=== PATIENT | male | born 1940 | race Caucasian/White ===

== ENCOUNTER 2016-12-23 04:16 | Inpatient (IN) | payer OTHER ==
[~2016-12-23] VITALS: Ht 172.7 cm; Wt 58.0 kg
[2016-12-23] VITALS (21 sets, daily range): BP systolic 80–122; BP diastolic 39–65
[~2016-12-23 04:16] MED LIST: ACID REDUCER M150 MG PO; FLAX SEED OIL PO; IRON325 MG PO; SIMVASTATIN20 MG PO; VICODIN EQUIVAL1 TAB PO; VICODIN PO; VITAMIN A; VITAMIN B12; [UNRECOGNIZED DRUG - OTHER] PO
--- NOTE | 2016-12-23 05:48 | ED ORDER SUMMARY ---
..... Patient: SHORTY MIRANDA OrderSheet [facility] VisitID: [id number] [address] [place] [address] 76y, M Registration Date/Time: 12/23/2016 ORDER SHEET Weight: 74.8 kg (estimated) Allergies: No Known Drug Allergy GENERAL ORDERS: Chest 1V Urgent (04:12/23/2016 Telly Mera) (Ack 4:25 SRedmond) (4:34 RFay) Oxygen (to maintain sats > 92%) (per Simple Mask) (04:12/23/2016 Telly Mera) (Ack 4:25 SRedmond) (4:30 TBowen R.N.) Blood Culture (Yes) (not sure) Urgent (04:12/23/2016 Telly Mera) (Ack 4:25 SRedmond) (4:35 TBowen R.N.) CBC w Diff Urgent (04:12/23/2016 Telly Mera) (Ack 4:25 SRedmond) (4:35 TBowen R.N.) CMP Urgent (04:12/23/2016 Telly Mera) (Ack 4:25 SRedmond) (4:35 TBowen R.N.) UA-Culture if indicated Urgent (04:12/23/2016 Telly Mera) (Ack 4:25 SRedmond) (6:34 TBowen R.N.) PT with INR Urgent (04:12/23/2016 Telly Mera) (Ack 4:25 SRedmond) (5:49 AMcQuoid ER Tech1) PTT Urgent (04:12/23/2016 Telly Mera) (Ack 4:25 SRedmond) (5:49 AMcQuoid ER Tech1) Troponin-I Urgent (04:12/23/2016 Telly Mera) (Ack 4:25 SRedmond) (4:35 TBowen R.N.) Lactate, Serum Urgent (04:12/23/2016 Telly Mera) (Ack 4:25 SRedmond) (4:35 TBowen R.N.) Pulse oximeter (04:23 12/23/2016 Telly Mera) (Ack 4:25 SRedmond) (4:29 TBowestefany R.N.) Luevano Catheter (06:35 12/23/2016 TBabrahan R.N. verbal order read back to Telly Mera) (6:35 TBowestefany R.N.) Verbal order read back and verified Lactate, Serum Urgent (08:02 12/23/2016 Telly Mera) (8:38 Derrick R.N.) BNP Urgent (08:17 12/23/2016 Telly Mera) (8:38 Derrick R.N.) MEDICATION ORDERS: IV FLUIDS: IV NS : initial bolus 500 mL (1000 mL/hr), then none - for X1 (NOW) (04:22 12/23/2016 Telly Mera) (4:31 TBowestefany R.N.) Vancomycin IV 1 gm/200mL (NOW) (04:27 12/23/2016 Telly Mera) (4:36 TBowen R.N.) Levaquin IV 750 mg/150 mL (NOW) (04:28 12/23/2016 Telly Mera) (4:37 TBowestefany R.N.) Zosyn IV 4.5 gm/100mL (NOW) (04:28 12/23/2016 Telly Mera) (5:33 TBowestefany R.N.) Ativan IV 1 mg (NOW) (05:05 12/23/2016 Og R.NJesus verbal order read back to Telly Mera) (5:11 TBowen R.N.) Verbal order read back and verified IV NS : initial bolus 1000 mL (1000 mL/hr), then none - for X1 (NOW) (05:43 12/23/2016 Telly Mera) (6:05 TBowestefany R.N.) IV NS : initial bolus 500 mL (1000 mL/hr), then none - for X1 (NOW) (08:03 12/23/2016 Telly Mera) (9:23 Derrick R.N.) ORDER SHEET NOTES: [Electronically signed by Martha Wiley R.N. (09:26 12/23/2016)] [Electronically signed by Rahat Austin Dr. (:12/25/2016)] [Electronically locked/signed by Martha Wiley R.N. (:12/23/2016)]
--- NOTE | 2016-12-23 05:48 | ED ORDER SUMMARY ---
..... Patient: SHORTY MIRANDA OrderSheet [facility] VisitID: [id number] [address] [place] [address] 76y, M Registration Date/Time: 12/23/2016 ORDER SHEET Weight: 74.8 kg (estimated) Allergies: No Known Drug Allergy GENERAL ORDERS: Chest 1V Urgent (04:12/23/2016 Telly Mera) (Ack 4:25 SRedmond) (4:34 RFay) Oxygen (to maintain sats > 92%) (per Simple Mask) (04:12/23/2016 Telly Mera) (Ack 4:25 SRedmond) (4:30 TBowen R.N.) Blood Culture (Yes) (not sure) Urgent (04:12/23/2016 Telly Mera) (Ack 4:25 SRedmond) (4:35 TBowen R.N.) CBC w Diff Urgent (04:12/23/2016 Telly Mera) (Ack 4:25 SRedmond) (4:35 TBowen R.N.) CMP Urgent (04:12/23/2016 Telly Mera) (Ack 4:25 SRedmond) (4:35 TBowen R.N.) UA-Culture if indicated Urgent (04:12/23/2016 Telly Mera) (Ack 4:25 SRedmond) (6:34 TBowen R.N.) PT with INR Urgent (04:12/23/2016 Telly Mera) (Ack 4:25 SRedmond) (5:49 AMcQuoid ER Tech1) PTT Urgent (04:12/23/2016 Telly Mera) (Ack 4:25 SRedmond) (5:49 AMcQuoid ER Tech1) Troponin-I Urgent (04:12/23/2016 Telly Mera) (Ack 4:25 SRedmond) (4:35 TBowen R.N.) Lactate, Serum Urgent (04:12/23/2016 Telly Mera) (Ack 4:25 SRedmond) (4:35 TBowen R.N.) Pulse oximeter (04:23 12/23/2016 Telly Mera) (Ack 4:25 SRedmond) (4:29 TBowestefany R.N.) Luevano Catheter (06:35 12/23/2016 TBabrahan R.N. verbal order read back to Telly Mera) (6:35 TBowestefany R.N.) Verbal order read back and verified Lactate, Serum Urgent (08:02 12/23/2016 Telly Mera) (8:38 Derrick R.N.) BNP Urgent (08:17 12/23/2016 Telly Mera) (8:38 Derrick R.N.) MEDICATION ORDERS: IV FLUIDS: IV NS : initial bolus 500 mL (1000 mL/hr), then none - for X1 (NOW) (04:22 12/23/2016 Telly Mera) (4:31 TBowestefany R.N.) Vancomycin IV 1 gm/200mL (NOW) (04:27 12/23/2016 Telly Mera) (4:36 TBowen R.N.) Levaquin IV 750 mg/150 mL (NOW) (04:28 12/23/2016 Telly Mear) (4:37 TBowestefany R.N.) Zosyn IV 4.5 gm/100mL (NOW) (04:28 12/23/2016 Telly Mera) (5:33 TBowestefany R.N.) Ativan IV 1 mg (NOW) (05:05 12/23/2016 Og R.NJesus verbal order read back to Telly Mera) (5:11 TBowen R.N.) Verbal order read back and verified IV NS : initial bolus 1000 mL (1000 mL/hr), then none - for X1 (NOW) (05:43 12/23/2016 Telly Mera) (6:05 TBowestefany R.N.) IV NS : initial bolus 500 mL (1000 mL/hr), then none - for X1 (NOW) (08:03 12/23/2016 Telly Mera) (9:23 Derrick R.N.) ORDER SHEET NOTES: [Electronically signed by Martha Wiley R.N. (09:26 12/23/2016)] [Electronically signed by Rahat Austin Dr. (:12/25/2016)] [Electronically locked/signed by Martha Wiley R.N. (:12/23/2016)]
--- NOTE | 2016-12-23 05:48 | ED NURSING NOTES ---
Clinical Report - Nurses [place] [address] [place] [address] 12/23/2016 4:16 Patient: SHORTY MIRANDA TRIAGE Triage time 04:20. Acuity: LEVEL 2. Chief Complaint: SHORTNESS OF BREATH and DIFFICULTY BREATHING. --04:26 Alberto BarbosaN. 04:20 12/23/16. BP: 71/44. HR: 113. RR: 30. O2 saturation: 92%. Temp: 98.6 F. Pain level now: 010. --04:26 Abel Barbosa. Weight: 74.8 kg estimated. Height/Length: 70 inches Estimated. BMI: 23.7. --04:21 Abel Barbosa. Medications Unable to Obtain. --04:21 Abel Barbosa. Family to bring in medication list. --07:12 Martha Wiley R.N. Allergies No Known Drug Allergy. --07:12 Martha Wiley R.N. History Arrived by EMS. Historian: patient. This started today. Treatment PRIMARY HEALTH CARE NURSE: None. See EMS report. SOCIAL HX: No alcohol use or drug use. No infectious disease exposure. FALL RISK ASSESSMENT: Fall risk assessment completed. No fall risk identified. NUTRITIONAL RISK ASSESSMENT: The nutritional risk assessment revealed no deficiencies. FUNCTIONAL ASSESSMENT: Functional assessment: no impairments noted. LEARNING NEEDS ASSESSMENT: The learning needs assessment revealed no barriers. SKIN INTEGRITY ASSESSMENT: Skin integrity risk assessment completed. No skin integrity risk identified. --04:26 Delaney Barbosa PROBLEMS: Gastroesophageal Reflux Disease [Chronic]. --07:13 Martha Wiley R.N. Cardiovascular Risk Factors. Pneumonia. Anemia. Leukocytosis. Hypercholesterolemia. Blood Transfusions. --07:13 Martha Wiley R.N. Acute myeloid leukemia, disease. --07:14 Martha Wiley R.N. ADDITIONAL SURGERIES: Appendectomy. Eyes. Tonsillectomy. --07:15 Martha Wiley R.N. Interventions ID band on patient. To treatment room. --04:26 Delaney Barbosa PHYSICAL ASSESSMENT To room via stretcher. GENERAL / NEURO / PSYCH: Alert. Appears anxious and in distress. HEENT: Mucous membranes are pink. RESPIRATORY: Severe respiratory distress. The patient can speak a few words at a time. Chest nontender. CVS: Normal sinus rhythm noted. Capillary refill less than 2 seconds. GI / : Abdomen soft and nontender. Bowel sounds within normal limits. SKIN: Skin is warm and dry. Normal skin turgor. --04:27 Delaney Barbosa GENERAL / NEURO / PSYCH: Alert. Oriented X 4. He appears uncomfortable. HEENT: Mucous membranes are pink. RESPIRATORY: Moderate respiratory distress. The patient can speak a few words at a time. CVS: Capillary refill less than 2 seconds. SKIN: Skin is warm and dry. --07:17 Martha Wiley R.N. NURSING PROGRESS NOTES 04:03 12/23/2016 Site #1 started prior to arrival by EMS via IV in the left forearm with an 20g angiocath. --04:28 Delaney Barbosa 04:28 12/23/2016 Site #2 started via IV in the right forearm with an 18g angiocath. --04:28 Delaney Barbosa Oxygen administered. Monitoring of patient in place. Blood samples drawn. Portable chest x-ray. Patient gowned. Head of bed elevated. Two patient identifiers checked. Call light placed in reach. Side rails up x 2. Bed placed in lowest position. Brakes of bed on. --04:29 Delaney Babrosa 04:31 12/23/2016 Started bag #1 500 mL IV Fluids IV NS (Saline); at 1000 mL/hr over 30 minute(s) via site #2 via IV pump. Allergies verified and confirmed 5 rights. IV patency established. IV site checked: no pain, redness, or swelling. IV flushed thoroughly pre- and post-medication administration. --04:31 Delaney Barbosa 04:36 12/23/2016 Started 1 gm of Vancomycin IVPB in bag #1 250 mL; at 175 mL/hr over 1 hour(s) via site #2 via IV pump. Allergies verified and confirmed 5 rights. IV patency established. IV site checked: no pain, redness, or swelling. IV flushed thoroughly pre- and post-medication administration. --04:36 Delaney Barbosa 04:37 12/23/2016 Started 750 mg of Levaquin (Levofloxacin) IVPB in bag #1 150 mL; at 150 mL/hr over 1 hour(s) via site #1 via IV pump. Allergies verified and confirmed 5 rights. IV patency established. IV site checked: no pain, redness, or swelling. IV flushed thoroughly pre- and post-medication administration. --04:37 Alberto BarbosaNJesus 04:44 12/23/16. BP: 91/59. HR: 111. RR: 40. O2 saturation: 98% on non-rebreather. Temp: deferred. Pain level now: 0/10. --04:45 Alberto BarbosaNJesus 05:04 12/23/2016 IV Fluids IV NS Discontinued: completed. Total amount infused: 500 mL. IV patency established. IV site checked: no pain, redness, or swelling. IV flushed thoroughly. --05:04 Alberto BarbosaNJesus 05:11 12/23/2016 Ativan (LORazepam) IVP 1 mg given over 2 minute(s) via site #2. Allergies verified, confirmed 5 rights and sedative warning given to the patient. IV patency established. IV site checked: no pain, redness, or swelling. IV flushed thoroughly pre- and post-medication administration. IVP given by RN. --05:11 Delaney Barbosa 05:32 12/23/2016 Vancomycin IVPB Discontinued: bag #1 completed. Total amount infused: 200 mL. IV patency established. IV site checked: no pain, redness, or swelling. IV flushed thoroughly. --05:32 Alberto BarbosaNJesus 05:33 12/23/2016 Started 4.5 gm of Zosyn (Piperacillin Sod-Tazobactam So) IVPB in bag #1 100 mL; at 200 mL/hr over 30 minute(s) via site #2 via IV pump. Allergies verified and confirmed 5 rights. IV patency established. IV site checked: no pain, redness, or swelling. IV flushed thoroughly pre- and post-medication administration. --05:33 Alberto BarbosaN. 05:33 12/23/16. BP: 109/50. HR: 112. RR: 27. O2 saturation: 91% on non-rebreather at 15 liters/minute. O2 started via non-rebreather at 15 liters/minute. Temp: deferred. Pain level now: 0/10. --05:35 Abel Barbosa. Overall patient status is the same. --05:35 Alberto BarbosaN. 06:04 12/23/2016 Levaquin IVPB Discontinued: bag #1 completed. Total amount infused: 150 mL. IV patency established. IV site checked: no pain, redness, or swelling. IV flushed thoroughly. --06:04 Alberto BarbosaN. 06:05 12/23/2016 Started bag #1 1000 mL IV Fluids IV NS (Saline); at 1000 mL/hr over 1 hour(s) via site #2 via IV pump. Allergies verified and confirmed 5 rights. IV patency established. IV site checked: no pain, redness, or swelling. IV flushed thoroughly pre- and post-medication administration. --06:05 Abel Barbosa. 06:34 12/23/2016 Zosyn IVPB Discontinued: bag #1 completed. Total amount infused: 100 mL. IV patency established. IV site checked: no pain, redness, or swelling. IV flushed thoroughly. --06:34 Abel Barobsa. 06:35 12/23/2016 IV Fluids IV NS Discontinued: bag #2 completed. Total amount infused: 1000 mL. IV patency established. IV site checked: no pain, redness, or swelling. IV flushed thoroughly. --06:35 Perico Barbosa.Henrry. Patient gowned. 14 fr lawson catheter placed. Reason for indwelling catheter: critical need to monitor intake and output. During procedure hand hygiene observed and sterile equipment and aseptic technique used. Return of 100 mL jeramy-colored urine; attached to bedside drainage bag positioned below the bladder and secured with stabilization device. He tolerated procedure well. --06:36 Delaney Barbosa 06:36 12/23/16. BP: 148/96. HR: 114. RR: 32. O2 saturation: 89%. O2 started via non-rebreather. Temp: deferred. Pain level now: 0/10. --06:37 Delaney Barbosa ( cleaned skin tear to the left elbow and applied large band-aid to site, pt tolerated well). --06:47 Delaney Barbosa 07:12 12/23/16. BP: 103/48. HR: 110. RR: 44. O2 saturation: 90% on non-rebreather at 15 liters/minute. --07:17 Martha Wiley R.N. ( attempt to call report. CCU RN to call back.). --07:34 Martha Wiley R.N. 08:20 12/23/16. BP: 91/45. HR: 94. RR: 40. O2 saturation: 90%. Pain level now 0/10. --08:21 Martha Wiley R.N. Warming measures performed. ( changed pt. linens.). --08:22 Martha Wiley R.N. 08:35 12/23/2016 Started bag #2 1000 mL IV Fluids IV NS (Saline); at 1000 mL/hr over 30 minute(s) via site #1 via IV pump. Allergies verified and confirmed 5 rights. IV patency established. IV site checked: no pain, redness, or swelling. IV flushed thoroughly pre- and post-medication administration. --09:23 Martha Wiley R.N. DISPOSITION / DISCHARGE Report was given to a nurse via a phone call. Report included patient's care, treatment, medications, reviewed medication reconcilliation, and condition (including any recent changes or anticipated changes). All questions were answered. --08:47 Martha Wiley R.N. Disposition: observation in the Critical Care Unit. Transported via stretcher by nurse with monitor, defibrillator, IV and O2. Patient's personal items; items were placed in belongings bag, given to the patient and transported with the patient. --08:48 Martha Wiley R.N. 08:58 12/23/16. BP: 93/41. HR: 119 (tachycardic). RR: 50. O2 saturation: 97%. Temp: 98.2 F. Pain level now: 0. --09:00 Martha Wiley R.N. 09:10 12/23/2016 Site #[address] upon admission; patent, no pain and no signs of infiltration. Converted to saline lock and flushed with 10 mL saline; flushes easily. --09:25 Martha Wiley R.N. 09:10 12/23/2016 Site #[address] upon admission; patent; flushes easily. --09:25 Martha Wiley R.N. Departure time: 09:15. --09:25 Martha Wiley R.N. Locked/Released at 12/23/2016 9:26 by Martha Wiley R.N.
--- NOTE | 2016-12-23 05:48 | ED CLINICAL REPORT ---
Clinical Report - Physicians/Mid Levels [facility] [address] [place] [address] 12/23/2016 4:16 Patient: SHORTY MIRANDA Arrived- By ambulance. Historian- patient and EMS personnel. HISTORY OF PRESENT ILLNESS Chief Complaint: DYSPNEA. This started today and is still present and worsening. It was abrupt in onset and has been constant but is not gone now. The dyspnea is severe and is worsened by exertion and is improved by rest. The patient has had sputum production and a cough. No chest discomfort, calf pain or foot swelling. Similar symptoms previously: None. Recent medical care: The patient was seen recently by a health care provider (diagnosed with "pneumonia." on abx but does not know the name). REVIEW OF SYSTEMS No sore throat or nasal discharge. All systems otherwise negative, except as recorded above. PAST HISTORY See nurses notes. Risk factors for DVT/pulmonary embolism- cancer. SOCIAL HISTORY No alcohol use or drug use. No recent travel. Is a local resident. ADDITIONAL NOTES The nursing notes have been reviewed. PHYSICAL EXAM Vital Signs: 12/23/2016 04:20 BP: 71/44. HR: 113. RR: 30. O2 saturation: 92%. Temp: 98.6 F. Pain level now: 0/10. Blood pressure normal. Oxygen saturation normal. Appearance: Alert. Patient in moderate distress. Eyes: Pupils equal, round and reactive to light. Eyes normal inspection. ENT: Ears normal. Nose normal. Pharynx normal. Uvula midline. Neck: Normal inspection. No jugular venous distention. Neck supple. CVS: Normal heart rate and rhythm. Heart sounds normal. Pulses normal. Respiratory: No respiratory distress. Moderate respiratory distress with accessory muscle use, anxiety, diaphoresis, tachypnea and hyperventilation. Moderate bilateral rhonchi present in the bases. Breath sounds normal. No splinting, wheezes or stridor. Abdomen: Soft and nontender. No organomegaly. Back: Normal inspection. Skin: Skin warm and dry. Normal skin color. No rash. Normal skin turgor. Extremities: Extremities exhibit normal ROM. No lower extremity edema. Neuro: Oriented X 3. No motor deficit. No sensory deficit. LABS, X-RAYS, AND EKG EKG: Tachycardia (123). Normal P waves. Normal DORI. Normal QRS complex. RBBB. Normal axis. Normal ST and T waves, QT and QTc. sinus tach with RBBB. EKG unchanged when compared with prior EKG. The study has been interpreted contemporaneously by me. The study has been independently viewed by me. Artifact present. Chest X-ray: (bilateral patchy infiltrates). Views: PA. Technique: good. The X-rays were independently viewed by me and interpreted contemporaneously by me. A comparison with prior films reveals that the findings are new (10/08/2016). Laboratory Tests: CBC w Diff: (YRN: 12/23/2016 03:30) ( MsgRcvd 12/23/2016 05:52) Final results Test Result Flag Units (Reference) WHITE BLOOD COUNT 4.9 K/uL (4.5-11.5) CORRECTED WBC 4.6 K/uL RED BLOOD COUNT 2.99 L M/uL (4.50-5.90) HEMOGLOBIN 8.8 L gm/dL (13.5-17.5) HEMATOCRIT 27.1 L % (41.0-53.0) MEAN CELL VOLUME 91 fL (80-100) MEAN CORPUSCULAR HGB 29 pg (26-34) MEAN CORPUSCULAR HGB CONC 32 g/dL (31-37) RED CELL DISTRIBUTION WIDTH 18.0 H % (11.6-14.8) PLATELET COUNT 280 K/uL (150-400) POLY % 60 % (50-75) BAND % 20 H % (0-8) LYMPH 9 L % (25-40) MONO 11 % (3-14) EOSINOPHIL % 0 % (0-4) BASOPHIL % 0 % (0-2) METAMYELOCYTE % 0 % (0-1) MYELOCYTE 0 % (0-1) NUCLEATED RED BLOOD CELL 6 H (0-1) OTHER CELL TYPE 0 RBC MORPHOLOGY 2+ HYPOCHROMIA~~1+ MICROCYTOSIS~~2+ ANISOCYTOSIS PT with INR: (YRN: 12/23/2016 05:15) ( MsgRcvd 12/23/2016 05:38) Final results Test Result Flag Units (Reference) INR 1.4 H (0.8-1.2) Low Intensity Therapy: INR 1.5-2.0 PT range 18.5-23.1Mod.Intensity Therapy: INR 2.0-3.0 PT range 23.1-31.5High Intensity Therapy: INR 2.5-3.5 PT range 27.4-35.5High Intensity Therapy 2: INR 3.0-4.0 PT range 31.5-39.3 APTT 37 H SECONDS (24-34) Lactate, Serum: (YRN: 12/23/2016 03:30) ( [facility] [place] 12/23/2016 05:35) Final results Test Result Flag Units (Reference) LACTIC ACID 12.0 H mmol/L (0.4-2.0) CRITICAL RESULTS CALLEDCalled to 12/23/16 0534Were 2 patient identifiers used? YWas the result read back? N CMP: (YRN: 12/23/2016 04:30) ( [facility] [place] 12/23/2016 05:35) Final results Test Result Flag Units (Reference) GLUCOSE 136 H mg/dL (70-110) BUN 24 H mg/dL (7-18) CREATININE 1.8 H mg/dL (0.6-1.3) Estimated GFR 38.98 mL/min Estimated GFR- 47.24 mL/min Note: Persistent reduction over 3 months in eGFR<60 mL/min/1.73 m2 defines CKD. Patients with eGFR values>=60 mL/min/1.73 m2 may also have CKD if evidence ofpersistent proteinuria. Additional information may be foundat www.kidney.org. SODIUM 136 mmol/L (136-145) POTASSIUM 3.9 mmol/L (3.5-5.1) CHLORIDE 103 mmol/L (98-107) CARBON DIOXIDE 11 *L mmol/L (21-32) CRITICAL RESULTS CALLEDCalled to 12/23/16 0535Were 2 patient identifiers used? YWas the result read back? N CALCIUM 7.9 L mg/dL (8.5-10.1) TOTAL PROTEIN 6.0 L g/dL (6.4-8.2) ALBUMIN 1.7 L g/dL (3.3-5.0) BILIRUBIN, TOTAL 1.2 H mg/dL (0.0-1.0) ALKALINE PHOSPHATASE 293 H U/L (46-116) AST (SGOT) 52 H U/L (15-37) ALT (SGPT) 66 U/L (12-78) TROPONIN I 0.05 ng/mL (0.00-1.5) TROPONIN REFERENCE RANGE:<0.1 NEGATIVE0.1-1.5 INDETERMINANT>1.5 POSITIVE . Pulse Oximetry: 12/23/2016 08:20 O2 saturation: 90%. 12/23/2016 06:36 O2 saturation: 89%. (FIO2-15 liter/min simple mask). Interpretation: hypoxemia. PROGRESS AND PROCEDURES Course of Care: the patient is a pleasant 76 yo male with hx of what he describes as myeloid leukemia presenting for shortness of breath. It has been associated with a cough. Due to time course and similar problems with pneumonia, this is the most likely diagnosis. other considerations include electrolyte abnormalities, AMI, and pneumothorax. Work up ordered. Patient placed on mask for O2. Lungs with asymmetrical rhonchi with right being worse than left. No wheezing. Do not feel breathing treatment would help at this time. Patient noted to be no code but agreeable to IV abx and fluids. CXR shows patient to have bilateral consolidations that are changed from prior chest xray. Abx and blood cultures ordered. Lab studies still pending. Work up shows patient to have increased lactic acid and low bicarb. Likely due to metablic acidosis. Patient given additional fluids for the lactic acidosis. Patient is to be admitted. Work up also shows anemia without need for transfusion at this time unless it is less than 7 for the hemoglobin. Spoke with hospitalist who will accept the patient to tele. No further recs except add on labs which she states she will follow up on. Patient admitted. No other concerns at this time. Do not feel patient's condition is due to PE or AMI. Patient with clear signs of infection on labs and CXR. Trop also negative with unremarkable EKG. Critical care performed (60 minutes). Time is exclusive of separately billable procedures. Time includes: direct patient care, patient reassessment, interpretation of data (laboratory data and pulse oximetry) and medical consultation. Disposition: Admitted to Acute Care. with tele. CLINICAL IMPRESSION sepsis acute moderate pneumonia acute bilateral lactic acidosis respiratory distress. (Electronically signed by Rahat Austin Dr. 12/25/2016 9:25)
--- NOTE | 2016-12-23 10:52 | DIAGNOSTIC IMAGING REPORT ---
PROCEDURE: XR CHEST 1 VIEW INDICATION: SOB TECHNIQUE: Single view chest. 04:28 hours COMPARISON: 10/08/2016 FINDINGS: Normal cardiomediastinal contour. Indistinct central vessels secondary to extensive left perihilar and right upper lobe alveolar opacity. No definite pleural effusion. No pneumothorax. No acute fractures visible. IMPRESSION: 1. Fairly extensive bilateral right upper and left perihilar opacities suggestive of pneumonia. 2. Interval resolution of previous bilateral lower lobe pneumonia.
[2016-12-23] MEDS ORDERED: AMIODARONE HCL200 MG PO ×2 (12:05→12:06)
[2016-12-23] MEDS ORDERED: DIFLUCAN200 MG PO (12:08)
[2016-12-23] MEDS ORDERED: POTASSIUM CHLORIDE PO (12:13)
[2016-12-23] MEDS ORDERED: ALDACTONE25 MG PO (12:14)
[2016-12-23] MEDS ORDERED: PROAIR HFA IN (12:17)
[2016-12-23] MEDS ORDERED: MEGESTROL625 MG/5 M PO (12:18)
[2016-12-23] MEDS ORDERED: CRESTOR5 MG PO (12:19)
[2016-12-23] MEDS ORDERED: SPIRIVA18 MCG INH (12:20)
--- NOTE | 2016-12-23 18:27 | DIAGNOSTIC IMAGING REPORT ---
PROCEDURE: NM PULMONARY PERFUSION W/VENT INDICATION: Short of breath, pneumonia, history of smoking, left-sided chest pain TECHNIQUE: 43.5 mCi of technetium-99m DTPA was aerosolized and inhaled. 5.8 mCi technetium-99m MAA was injected intravenously. Ventilation and perfusion images of the lungs were obtained in eight orthogonal projections. COMPARISON: None. Chest x-ray Performed the same day FINDINGS: Ventilation images: Extensive clumping of radiotracer in the main bronchi and seen in the trachea. Heterogeneous distribution of radiotracer throughout the lungs with relative increased aeration at the lung bases Perfusion images: Mildly heterogeneous distribution of perfusion radiotracer throughout the lungs with preferential perfusion to the left lung base, compatible with the aeration pattern. No large perfusion defects are visible. Asymmetric elevation of the right hemidiaphragm corresponds to the radiograph finding. No mismatched defects of perfusion versus ventilation to suggest pulmonary embolus. IMPRESSION: 1. Low probability of pulmonary embolus. 2. Relative decreased aeration to the upper lobes and diffuse heterogeneous aeration throughout compatible with history of smoking and of COPD. 3. Discussed with Dr. Hahn.
[2016-12-24] VITALS (24 sets, daily range): BP systolic 91–117; BP diastolic 42–65
--- NOTE | 2016-12-24 01:08 | HISTORY AND PHYSICAL ---
ADMITTED: 12/23/2016 CHIEF COMPLAINT: 1. Weakness 2. Shortness of breath HISTORY OF PRESENT ILLNESS: This is a 76-year-old male with a very complex medical history over the last couple of months, including new diagnosis of acute myelogenous leukemia in the middle of September, who has been treated with 3 treatments of chemotherapy and said to be in remission as of bone marrow biopsy done 12/12/2016. The patient initially presented to [facility] on 10/08/2016 and was admitted and monitored overnight, at which point he was transferred to the [facility] and was a patient there from 2015 until 11/05 2016. During this time, the patient was treated for his leukemia, as well as for resistant pneumonia with extremely broad-spectrum antibiotics. He was discharged home and then readmitted to [facility] on 11/12/2016 for reinduction chemotherapy and then discharged 11/18/2016, but readmitted for worsening pneumonia on 11/21/2016 and diagnosed with recurrent pneumonia coagulase-negative staphylococcal bacteremia. Blood cultures were also positive for henok. He was discharged on 12/13/2016 and finished his antifungal and antibiotics on 12/17/2016. Over the last 2 days, so on 12/21/2016, the patient started having increasing weakness and shortness of breath, at which point he presented to [facility] after a fall from his weakness. He states that he has increased cough with sputum production. He does also complain that he has had chronic rhinorrhea over the last several years, and 24 hours before admission he also does have a headache. Upon admission, he was complaining of left-sided chest pain and tightness. MEDICAL/SURGICAL HISTORY: Past medical history: 1. Acute myelogenous leukemia. 2. Internal hemorrhoids. 3. Colon polyps. 4. Glaucoma. 5. Dyslipidemia. 6. Recent pancytopenia secondary to the treatment for acute myelogenous leukemia; however, this had resolved since treatment. Summary of medical care over the last 2 months: The patient was admitted on to 10/09/[address] [facility] and diagnosed with likely leukemia, sepsis, and severe pneumonia. The patient was then transferred to the [facility] 10/09/2016 and was an inpatient until 11/05/2016. At this time, the patient was diagnosed with acute myelogenous leukemia and received cytarabine secondary to concerns for pulmonary leukostasis. He then received dose-reduced G-CLAM, day 1 of which was 10/11/2016. The patient developed neutropenic fever on 10/18/2016. CT of the chest, abdomen, and pelvis was negative except for pneumonia. C. difficile and stool studies were negative. Urine culture and blood cultures were negative. The patient had a repeat bone marrow biopsy on 11/05/2016, of which I do not have the results. The patient was treated and discharged home with Augmentin and Cipro until neutropenia has resolved, and he was given prophylaxis with acyclovir and posaconazole. While inpatient, the patient's COPD and pneumonia were treated with Zosyn and a Z-Matthew. There were concerns for dysphagia, resulting in aspiration; however, this was not further evaluated at the [facility]. The patient had insomnia, which did seem to improve with melatonin and trazodone, and he had an HSV outbreak and it was treated with acyclovir. Studies during this period of time included a CT of the chest on 10/10/2016, which showed pneumonia and/or aspiration pneumonia in bilateral lower lobes and paraseptal emphysema. He had another repeat CT scan on 10/18 2016, which showed improving consolidation. He had a CT of his abdomen and pelvis on 10/21/2016 which showed right greater than left bibasilar opacities and ground-glass opacities, interlobar septal thickening, nonobstructing bilateral renal calculi. He had a repeat CT of his chest on 10/26/2016 showing ground-glass and consolidation in the right lower lobe and posterior aspect of the right middle lobe showing worsening pneumonia. The patient was then readmitted at [facility] on 11/12/2016 for reinduction mini G-CLAM and was an inpatient until 11/18/2016. The patient was then readmitted at [facility] on 11/21/2016 due to neutropenic fever and was not discharged until 12/13/2016. The patient, during this hospitalization received broad-spectrum antibiotics including meropenem and Zosyn, and was diagnosed with a fungal infection in his blood and treated with micafungin, and then discharged home on fluconazole. He also had a swallow evaluation with barium which was negative for laryngeal penetration or bronchial aspiration. This took place on 11/15/2016. He had a CT scan on his chest on 11/28 2016, which showed pneumonia. He also had an echocardiogram on 11/30/2016 which showed an ejection fraction of 50% and a large aortic aneurysm of 4 cm. It also showed trace hepatic fluid and small pleural effusions. The patient was diagnosed with depression and 3:1 flutter during this hospitalization and started on amiodarone. His amiodarone dose was initially 200 mg p.o. b.i.d., but it has since been decreased to 200 mg p.o. daily. He had a CT scan of his sinuses on 11/28/2016 which was negative. He had a repeat bone marrow biopsy on 12/12/2016, which showed regenerating marrow with no evidence of residual leukemia. The actual read stated "[id number] normocytic normochromic anemia, marked absolute lymphopenia and thrombocytopenia." Past surgical history: 1. Mohs surgery on his forehead for skin cancer. 2. Colonoscopy a couple years ago. 3. T&A. 4. Appendectomy. 5. ORIF on right femur and right tib-fib secondary to fractures. MEDICATIONS: 1. Amiodarone 200 mg p.o. daily. 2. Potassium chloride 20 mEq p.o. daily. 3. Spironolactone 25 mg p.o. daily. 4. Albuterol inhaler. 5. Megestrol 40 mg p.o. daily. 6. Rosuvastatin 5 mg p.o. daily. 7. Spiriva 18 mcg 1 puff inhaled daily. 8. Fluconazole 200 mg p.o. b.i.d., which ended 12/19/2016. ALLERGIES: 1. NO KNOWN DRUG ALLERGIES. SOCIAL HISTORY: The patient lives with his and his dog. He quit drinking alcohol in September 2016, at which time he was drinking 2-3 beers per week. He quit smoking on 09/24/2016 after smoking since 1956 at a rate of 1 pack per day. FAMILY HISTORY: Father with stroke. Mother with breast cancer. REVIEW OF SYSTEMS: A full 12-point review of systems was negative, except as per HPI, and the fact that he has frequent urination with urinary urgency and dysuria despite a normal UA. He also complains of years of diffuse muscle aches and recurrent epistaxis. PHYSICAL EXAMINATION: VITAL SIGNS: Blood pressure on admission was 80/42, pulse of 112, respiratory rate of 40, O2 saturation of 97% on 12 liters of oxygen by a nonrebreather, T- max of 37.2 degrees Celsius. GENERAL: This is a toxic-appearing, elderly male lying in bed, in moderate respiratory distress. HEENT: Head is atraumatic, normocephalic. Pupils are equal, round, and reactive to light with accommodation bilaterally. Extraocular muscles are intact bilaterally. NECK: Trachea is midline. There is no JVD. CARDIAC: S1, S2, regular rhythm, tachycardia. No S3, S4, gallops, or rubs. There is a 2/6 systolic murmur increased at the base. LUNGS: Fairly clear bilaterally with crackles in the bilateral lower bean and on the left side. ABDOMEN: Soft, nontender, nondistended without hepatosplenomegaly or masses. Bowel sounds are active. EXTREMITIES: There is no peripheral edema. LAB/IMAGING: Sodium is 136, potassium 3.9, chloride 103, bicarbonate 11, BUN of 24, creatinine of 1.8, glucose of 136, calcium of 7.4. Alkaline phosphatase of 293, albumin 1.7, total protein of 6.0, total bilirubin is 1.2. AST of 52, ALT of 66. Troponin is 0.05. Lactic acid of 12. INR of 1.4. UA is negative. White blood cell count of 4.9, hemoglobin of 8.8, hematocrit of 27.1, platelets of 280. Chest x-ray shows moderately severe bibasilar consolidations suggestive of pneumonia. EKG shows sinus rhythm at 123 beats per minute with a right bundle branch block and a QTc of 558. ABG shows a pH of 7.48, pCO2 of 19.2, and bicarbonate of 14.4. Blood cultures x2 are pending. BNP is 736. IMPRESSION: 1. This is a 76-year-old male with recent acute myelogenous leukemia, now in remission, and chronic pneumonia and bacteremia with a fungal infection of his blood, recently also with pancytopenia, presenting with complaints of weakness and shortness of breath secondary to sepsis from pneumonia and possibly ongoing bacteremia and a fungal infection in his blood. 2. I am also concerned the patient also has chest pain on admission and will be ruled out for acute coronary syndrome. 3. The patient also with acute on chronic respiratory alkalosis and, considering risk factors, is at high risk for possible deep venous thrombosis. PLAN: 1. Fluids, electrolytes, and nutrition: The patient will be n.p.o. pending respiratory improvement. 2. Cardiac: Rule out acute coronary syndrome. I have ordered serial troponins. I am also concerned about looming heart failure; however, the patient clinically is not having a congestive heart failure exacerbation currently. Will monitor closely, especially given need for intravenous fluids. The patient does have prolonged QTc, and we will avoid medications that may cause cardiac arrhythmias. The patient had 3:1 flutter recently and is on amiodarone. We will continue the amiodarone. 3. Respiratory: The patient has ongoing pneumonia despite prolonged intravenous antibiotics over the last 2 months. I started broad-spectrum antibiotics including vancomycin, Zosyn, and azithromycin and have discussed this route of care with Dr. Paredes from Infectious Disease at [facility]. The patient has acute on chronic respiratory alkalosis. Ventilation-perfusion scan was done and was suggestive of no pulmonary embolism. 4. Renal: The patient is in acute renal failure. I have started him on intravenous fluids for resuscitation. Will monitor closely. 5. Infectious Disease: Given the recent history of bacteremia and a fungal infection of blood, I am also concerned that the patient may have ongoing blood infections. I have added micafungin at the suggestion of Dr. Paredes. 6. Prophylaxis: The patient will be on gastrointestinal ulcer prophylaxis with famotidine and will be on deep venous thrombosis prophylaxis with heparin. 7. CODE STATUS: I HAD A LONG CONVERSATION WITH THE PATIENT AND HIS ABOUT THIS SITUATION. THEY SAID IN THE CASE OF A CODE, THEY WOULD NOT WANT ANYTHING FURTHER DONE; HOWEVER, IF HE IS HEADED TOWARDS RESPIRATORY DISTRESS OR FAILURE, THEY WOULD WANT TO TRY BIPAP AND CONSIDER INTUBATION IF INDICATED WITH THE CONDITION THAT THEY WOULD ONLY WANT TO BE ON A VENTILATOR FOR 24-48 HOURS.
[2016-12-25] VITALS (20 sets, daily range): BP systolic 97–124; BP diastolic 51–62
--- NOTE | 2016-12-25 09:26 | ED MED RECONCILIATION SUMMARY ---
Patient: SHORTY MIRANDA Medication Reconciliation Report [facility] VisitID: [id number] [address] [place] [address] 76y, M Registration Date/Time: 12/23/2016 Weight: 74.8 kg Height/Length: 70 in. BMI: 23.7 ALLERGIES: No Known Drug Allergy The patient's Home Medications are listed below: THE FOLLOWING MEDICATIONS NEED TO BE RECONCILED: Family to bring in medication list The source(s) of the original Home Medication information: Not obtained. The following Medications were given to the patient in the Emergency Department: IV NS IV Fluids bolus 0, then 1000 mL/hr, administered: 12/23/2016 4:31:00 AM Vancomycin [IVPB] IVPB bolus 0, then 1 gm 175 mL/hr, administered: 12/23/2016 4:36:00 AM Levaquin [IVPB] IVPB bolus 0, then 750 mg 150 mL/hr, administered: 12/23/2016 4:37:00 AM Ativan [IVP] IVP 1 mg, administered: 12/23/2016 5:11:00 AM Zosyn [IVPB] IVPB bolus 0, then 4.5 gm 200 mL/hr, administered: 12/23/2016 5:33:00 AM IV NS IV Fluids bolus 0, then 1000 mL/hr, administered: 12/23/2016 6:05:00 AM IV NS IV Fluids bolus 0, then 1000 mL/hr, administered: 12/23/2016 8:35:00 AM The following Medications were prescribed to the patient: None.
--- NOTE | 2016-12-25 09:26 | ED MAR SUMMARY ---
..... Medication Administration Record [facility] [address] [place] [address] Patient: SHORTY MIRANDA Visit ID: [id number] 76y, M Weight: 74.8 kg Height/Length: 70 in BMI: 23.7 ALLERGIES: No Known Drug Allergy Start 04:31 12/23/2016 Abel Barbosa., Stop 05:04 12/23/2016 Delaney Barbosa Medication Administered: IV NS (SALINE), Dose: IV Fluids over 30 minute(s), Rate: 1000 mL/hr, Dispensed: 500 mL bag, Site: #2 right forearm. Medication Ordered: IV NS : initial bolus 500 mL (1000 mL/hr), then none - for X1 (NOW). Start 04:36 12/23/2016 Abel Barbosa., Stop 05:32 12/23/2016 Delaney Barbosa Medication Administered: VANCOMYCIN [IVPB], Dose: 1 gm IVPB over 1 hour(s), Rate: 175 mL/hr, Dispensed: 250 mL bag, Site: #2 right forearm. Medication Ordered: Vancomycin IV 1 gm/200mL (NOW). Start 04:37 12/23/2016 Abel Barbosa., Stop 06:04 12/23/2016 Abel Barbosa. Medication Administered: LEVAQUIN [IVPB] (LEVOFLOXACIN), Dose: 750 mg IVPB over 1 hour(s), Rate: 150 mL/hr, Dispensed: 150 mL bag, Site: #1 left forearm. Medication Ordered: Levaquin IV 750 mg/150 mL (NOW). Given 05:11 12/23/2016 Delaney Barbosa Medication Administered: ATIVAN [IVP] (LORAZEPAM), Dose: 1 mg IVP over 2 minute(s), Site: #2 right forearm. Medication Ordered: Ativan IV 1 mg (NOW). Start 05:33 12/23/2016 Abel Barbosa., Stop 06:34 12/23/2016 Delaney Barbosa Medication Administered: ZOSYN [IVPB] (PIPERACILLIN SOD-TAZOBACTAM SO), Dose: 4.5 gm IVPB over 30 minute(s), Rate: 200 mL/hr, Dispensed: 100 mL bag, Site: #2 right forearm. Medication Ordered: Zosyn IV 4.5 gm/100mL (NOW). Start 06:05 12/23/2016 Chelsey R.N., Stop 06:35 12/23/2016 Chelsey RMary. Medication Administered: IV NS (SALINE), Dose: IV Fluids over 1 hour(s), Rate: 1000 mL/hr, Dispensed: 1000 mL bag, Site: #2 right forearm. Medication Ordered: IV NS : initial bolus 1000 mL (1000 mL/hr), then none - for X1 (NOW). Start 08:35 12/23/2016 Martha Wiley RJesusNJesus Medication Administered: IV NS (SALINE), Dose: IV Fluids over 30 minute(s), Rate: 1000 mL/hr, Dispensed: 1000 mL bag, Site: #1 left forearm. Medication Ordered: IV NS : initial bolus 500 mL (1000 mL/hr), then none - for X1 (NOW).
--- NOTE | 2016-12-25 09:26 | ED MED RECONCILIATION SUMMARY ---
Patient: SHORTY MIRANDA Medication Reconciliation Report [facility] VisitID: [id number] [address] [place] [address] 76y, M Registration Date/Time: 12/23/2016 Weight: 74.8 kg Height/Length: 70 in. BMI: 23.7 ALLERGIES: No Known Drug Allergy The patient's Home Medications are listed below: THE FOLLOWING MEDICATIONS NEED TO BE RECONCILED: Family to bring in medication list The source(s) of the original Home Medication information: Not obtained. The following Medications were given to the patient in the Emergency Department: IV NS IV Fluids bolus 0, then 1000 mL/hr, administered: 12/23/2016 4:31:00 AM Vancomycin [IVPB] IVPB bolus 0, then 1 gm 175 mL/hr, administered: 12/23/2016 4:36:00 AM Levaquin [IVPB] IVPB bolus 0, then 750 mg 150 mL/hr, administered: 12/23/2016 4:37:00 AM Ativan [IVP] IVP 1 mg, administered: 12/23/2016 5:11:00 AM Zosyn [IVPB] IVPB bolus 0, then 4.5 gm 200 mL/hr, administered: 12/23/2016 5:33:00 AM IV NS IV Fluids bolus 0, then 1000 mL/hr, administered: 12/23/2016 6:05:00 AM IV NS IV Fluids bolus 0, then 1000 mL/hr, administered: 12/23/2016 8:35:00 AM The following Medications were prescribed to the patient: None.
--- NOTE | 2016-12-25 09:26 | ED DISCHARGE INSTRUCTIONS ---
Patient: SHORTY MIRANDA General Instructions [facility] VisitID: [id number] [address] [place] [address] 76y, M Registration Date/Time: 12/23/2016 sepsis acute moderate pneumonia acute bilateral lactic acidosis respiratory distress. (Electronically signed by Rahat Austin Dr. 12/25/2016 9:25)
--- NOTE | 2016-12-25 09:26 | ED MAR SUMMARY ---
..... Medication Administration Record [facility] [address] [place] [address] Patient: SHORTY MIRANDA Visit ID: [id number] 76y, M Weight: 74.8 kg Height/Length: 70 in BMI: 23.7 ALLERGIES: No Known Drug Allergy Start 04:31 12/23/2016 Abel Barbosa., Stop 05:04 12/23/2016 Delaney Barbosa Medication Administered: IV NS (SALINE), Dose: IV Fluids over 30 minute(s), Rate: 1000 mL/hr, Dispensed: 500 mL bag, Site: #2 right forearm. Medication Ordered: IV NS : initial bolus 500 mL (1000 mL/hr), then none - for X1 (NOW). Start 04:36 12/23/2016 Abel Barbosa., Stop 05:32 12/23/2016 Delaney Barbosa Medication Administered: VANCOMYCIN [IVPB], Dose: 1 gm IVPB over 1 hour(s), Rate: 175 mL/hr, Dispensed: 250 mL bag, Site: #2 right forearm. Medication Ordered: Vancomycin IV 1 gm/200mL (NOW). Start 04:37 12/23/2016 Abel Barbosa., Stop 06:04 12/23/2016 Abel Barbosa. Medication Administered: LEVAQUIN [IVPB] (LEVOFLOXACIN), Dose: 750 mg IVPB over 1 hour(s), Rate: 150 mL/hr, Dispensed: 150 mL bag, Site: #1 left forearm. Medication Ordered: Levaquin IV 750 mg/150 mL (NOW). Given 05:11 12/23/2016 Delaney Barbosa Medication Administered: ATIVAN [IVP] (LORAZEPAM), Dose: 1 mg IVP over 2 minute(s), Site: #2 right forearm. Medication Ordered: Ativan IV 1 mg (NOW). Start 05:33 12/23/2016 Abel Barbosa., Stop 06:34 12/23/2016 Delaney Barbosa Medication Administered: ZOSYN [IVPB] (PIPERACILLIN SOD-TAZOBACTAM SO), Dose: 4.5 gm IVPB over 30 minute(s), Rate: 200 mL/hr, Dispensed: 100 mL bag, Site: #2 right forearm. Medication Ordered: Zosyn IV 4.5 gm/100mL (NOW). Start 06:05 12/23/2016 Chelsey R.N., Stop 06:35 12/23/2016 Chelsey RMary. Medication Administered: IV NS (SALINE), Dose: IV Fluids over 1 hour(s), Rate: 1000 mL/hr, Dispensed: 1000 mL bag, Site: #2 right forearm. Medication Ordered: IV NS : initial bolus 1000 mL (1000 mL/hr), then none - for X1 (NOW). Start 08:35 12/23/2016 Martha Wiley RJesusNJesus Medication Administered: IV NS (SALINE), Dose: IV Fluids over 30 minute(s), Rate: 1000 mL/hr, Dispensed: 1000 mL bag, Site: #1 left forearm. Medication Ordered: IV NS : initial bolus 500 mL (1000 mL/hr), then none - for X1 (NOW).
--- NOTE | 2016-12-25 09:26 | ED DISCHARGE INSTRUCTIONS ---
Patient: SHORTY MIRANDA General Instructions [facility] VisitID: [id number] [address] [place] [address] 76y, M Registration Date/Time: 12/23/2016 sepsis acute moderate pneumonia acute bilateral lactic acidosis respiratory distress. (Electronically signed by Rahat Austin Dr. 12/25/2016 9:25)
--- NOTE | 2016-12-25 13:46 | DIAGNOSTIC IMAGING REPORT ---
PROCEDURE: XR CHEST 1 VIEW INDICATION: right sided wheezes after choking TECHNIQUE: Portable AP view 12:53 p.m. COMPARISON: Chest 12/23/2016 and 10/08/2016 FINDINGS: Increase in or new left lower lobe infiltrate. No change in the left perihilar and right upper lobe infiltrates. Heart size remains normal. IMPRESSION: 1. New left lower lobe infiltrate. Possible aspiration. 2. Little change in the right upper lobe and left upper lobe and perihilar infiltrates.
--- NOTE | 2016-12-25 17:57 | Progress Note ---
Subjective General Patient seen and examined, currently patient is less hypotensive and less obtunded compared to yesterday. Patient is improving Eyes Denies: Pain, Vision Change, Conjunctival Inflammation, Eyelid Inflammation, Redness, Other. Respiratory Denies: Cough, Dry, SOB w/exertion, Wheezing, Hemoptysis, Pleuritic Pain, Sputum , Other. Cardiovascular Palpitations, Edema. Gastrointestinal Denies: Nausea, Vomiting, Abdominal Pain, Diarrhea, Constipation, Melena, Hematochezia, Other. Musculoskeletal Back Pain. Denies: Neck Pain, Shoulder Pain, Arm Pain, Hand Pain, Leg Pain, Foot Pain, Other. Skin Bruising. Denies: Rash, Lesions, Jaundice, Other. Neurological Confusion. Denies: Weakness, Numbness, Incoordination, Change in speech, Seizures, Other. Physical Exam Vital Signs / I&Os Vital Signs Date Time Temp Pulse Resp B/P Pulse O2 O2 Flow FiO2 Ox Delivery Rate 12/31 0807 Room Air 0.0 12/31 0714 98.6 82 16 121/59 95 Room Air 12/31 0430 98.6 81 20 105/67 93 Room Air 0.0 12/30 2300 97.5 72 16 123/62 95 Room Air 12/30 2018 Room Air 12/30 1801 69 16 128/67 95 12/30 1451 98.1 85 16 127/71 96 Room Air 0.0 I&O 12/30 0800 12/30 1600 12/31 0000 Intake Total 240 390 240 Output Total 2080 500 1925 Balance -1840 -110 -1685 General Appearance Alert, Oriented X3, No acute distress Lungs Normal air movement, -= bilateral ronchi Neck Supple, No JVD, No masses, No thyromegaly Cardiovascular Normal S1 and S2, No murmurs, gallops, rubs Abdomen Soft, No tenderness Extremities No edema, Normal pulses, No tenderness, Strength = upper ext's, Strength = lower ext's Neurological Normal speech, Sensation intact, Strength 5/5 x4 ext's, No lateralizing signs Psych/Mental Status Confused Assessment and Plan Problem List 1. Pneumonia Plan - patient has evidence of positive blood cultures with evidence of fungemia with henok - will treat the patient with vancomycin, azithro, zosyn and micafungin - will monitor blood cultures - will await pathology 2. Hypotension Plan - improving - maintaining appropriate blood pressures however patient has occasional drops of his MAP less than 65 - no pressor requirement thus far - will continue to monitor 3. Sepsis Plan - secondary to bactermia and fungemia - will c/w the agents mentioned above - pressors as needed - liberal IV fluids 4. AML (acute myeloblastic leukemia) Plan - in remission will continue to monitor
[2016-12-26 02:25] VITALS: BP 130/64
[2016-12-26 07:00] VITALS: BP 123/64
[2016-12-26 11:23] VITALS: BP 115/70
[2016-12-26 15:28] VITALS: BP 116/68
[2016-12-26 18:25] VITALS: BP 138/67
--- NOTE | 2016-12-26 18:37 | Progress Note ---
Subjective General Patient seen and examined, patient is improving significantly. Patients pressures have improved as did the markers of his infection. Patient is having vague uneasiness and restlessness. Constitutional Malaise. Denies: Fever, Chills, Sweats, Weakness, Other. Eyes Denies: Pain, Vision Change, Conjunctival Inflammation, Eyelid Inflammation, Redness, Other. ENT Denies: Ear Pain, Ear Discharge, Nose Pain, Nasal Discharge, Nasal Congestion, Mouth Pain, Mouth Swelling, Throat Pain, Throat Swelling, Other. Respiratory Denies: Cough, Dry, SOB w/exertion, Wheezing, Hemoptysis, Pleuritic Pain, Sputum , Other. Cardiovascular Chest Pain. Denies: Palpitations, Orthopnea, PND, Edema, Light-headedness, Other. Gastrointestinal Denies: Nausea, Vomiting, Abdominal Pain, Diarrhea, Constipation, Melena, Hematochezia, Other. Genitourinary Denies: Dysuria, Frequency, Incontinence, Hematuria, Retention, Other. Musculoskeletal Denies: Neck Pain, Shoulder Pain, Arm Pain, Back Pain, Hand Pain, Leg Pain, Foot Pain, Other. Skin Denies: Rash, Lesions, Jaundice, Bruising, Other. Neurological Denies: Weakness, Numbness, Incoordination, Change in speech, Confusion, Seizures, Other. Physical Exam Vital Signs / I&Os Vital Signs Date Time Temp Pulse Resp B/P Pulse O2 O2 Flow FiO2 Ox Delivery Rate 12/26 1528 98.2 76 28 116/68 96 Nasal 2.5 Cannula 12/26 1400 2.5 12/26 1123 98.2 84 22 115/70 94 Mask 4.0 12/26 0804 5.0 12/26 0743 Nasal 5.0 Cannula 12/26 0700 98.6 99 24 123/64 94 Nasal 5.0 Cannula 12/26 0225 98.6 99 22 130/64 96 Mask 6.0 12/26 0146 89 12/25 2110 76 24 123/58 96 Nasal 5.0 Cannula 12/25 2053 97.5 12/25 2019 5.0 12/25 2018 81 20 113/56 94 Nasal 5.0 Cannula 12/25 1934 Nasal 5.0 Cannula 12/25 193 88 12/25 1911 80 22 104/54 98 Nasal 5.0 Cannula I&O 12/25 0800 12/25 1600 12/26 0000 Intake Total 1429 1737 375 Output Total 660 685 865 Balance 769 1052 -490 General Appearance Alert, Oriented X3, Mild distress HEENT Atraumatic, EOMI, Moist mucous membranes Lungs Clear to auscultation, Normal air movement Neck No JVD, No masses Cardiovascular Regular rate and rhythm, Normal S1 and S2 Abdomen Soft, No tenderness, No guarding, No rebound Extremities No clubbing, Normal pulses, No tenderness, Strength = upper ext's, Strength = lower ext's, Rajan's sign negative Skin No Breakdown, No Significant Lesions Neurological Normal speech, Normal tone, Cranial nerves intact, No lateralizing signs Psych/Mental Status Mood normal LAB Results Laboratory Tests 12/26 0835 Toxicology Vancomycin Trough (10.0 - 20.0 ug/mL) 11.3 Assessment and Plan Problem List 1. Pneumonia of both lungs due to infectious organism Plan - Pt currently on vanco, azithro, sozyn and micafungin for pneumonia with multiple organisms - pt was seen to be neutropenic initially however patient is mounting an immune response and has appropriate distribution of wbcs with neutraphil predominance - will c/w all the aforementioned agents - currently on day 4 of therapy - vancomycin level appropriate, will repeat in 2 days - will obtain daily blood work - will follow up micro results 2. Sepsis Plan - secondary to bacterial and fungal agents - pt is on appropriate antibiotic therapy - will titrate down fluids once patient is eating appropriately - will continue to trend lab work 3. Hypotension Plan - resolved 4. AML (acute myeloblastic leukemia) Plan - will discuss with oncologist to as whether any labs need to be drawn - will attempt to achieve pain control as much as possible,will address with oncologist if unable to do so
[2016-12-26 22:04] VITALS: BP 114/62
[2016-12-27 02:04] VITALS: BP 130/70
[2016-12-27 06:10] VITALS: BP 130/61
[2016-12-27 11:08] VITALS: BP 107/51
[2016-12-27 14:52] VITALS: BP 118/58
[2016-12-27 18:27] VITALS: BP 126/58
--- NOTE | 2016-12-27 19:35 | Progress Note ---
Subjective General Patient seen and examined. Patient has been complaining of restlessness. Patient otherwise has no other complaints. Patient has been desaturating occasionally while on nasal cannula and moving. However his overall oxygen requirement is improving. Constitutional Weakness, Malaise. Denies: Fever, Chills, Sweats, Other. Eyes Denies: Pain, Vision Change, Conjunctival Inflammation, Eyelid Inflammation, Redness, Other. ENT Denies: Ear Pain, Ear Discharge, Nose Pain, Nasal Discharge, Nasal Congestion, Mouth Pain, Mouth Swelling, Throat Pain, Throat Swelling, Other. Respiratory Cough, SOB w/exertion. Denies: Dry, Wheezing, Hemoptysis, Pleuritic Pain, Sputum, Other. Cardiovascular Denies: Chest Pain, Palpitations, Orthopnea, PND, Edema, Light-headedness, Other. Gastrointestinal Denies: Nausea, Vomiting, Abdominal Pain, Diarrhea, Constipation, Melena, Hematochezia, Other. Genitourinary Denies: Dysuria, Frequency, Incontinence, Hematuria, Retention, Other. Musculoskeletal Denies: Neck Pain, Shoulder Pain, Arm Pain, Back Pain, Hand Pain, Leg Pain, Foot Pain, Other. Skin Denies: Rash, Lesions, Jaundice, Bruising, Other. Physical Exam Vital Signs / I&Os Vital Signs Date Time Temp Pulse Resp B/P Pulse O2 O2 Flow FiO2 Ox Delivery Rate 12/29 1538 97.9 83 16 112/61 91 Nasal 3.5 Cannula 12/29 1031 97.9 66 14 114/59 97 Nasal 3.5 Cannula 12/29 0830 Nasal 3.5 Cannula 12/29 0800 3.5 12/29 0736 98.2 80 16 109/61 97 Nasal 3.5 Cannula 12/29 0512 98.2 68 16 116/60 96 Nasal 3.5 Cannula 12/29 0244 71 100 12/28 2246 98.4 70 17 107/58 98 Nasal 3.5 Cannula 12/28 2033 Nasal 3.5 Cannula 12/28 1923 3.5 12/28 1839 97.9 85 18 108/57 98 Nasal 3.5 Cannula I&O 12/28 0800 12/28 1600 12/29 0000 Intake Total 7200 663 6757 Output Total 2550 1100 900 Balance -1112 -860 833 General Appearance Alert, Oriented X3, No acute distress HEENT Atraumatic, Moist mucous membranes Lungs - bialateral basilar ronchi - some expiratory wheezes present Cardiovascular Regular rate and rhythm, Normal S1 and S2, No murmurs, gallops, rubs Abdomen Normal bowel sounds, Soft, No tenderness, No guarding, No hepatosplenomegaly Pelvic No masses, No tenderness Extremities No edema, Normal pulses, No tenderness, Strength = upper ext's, Strength = lower ext's Skin No Breakdown, No Significant Lesions Neurological Normal tone, Sensation intact, Strength 5/5 x4 ext's Psych/Mental Status Mood normal LAB Results Laboratory Tests 12/29 0440 Chemistry Plasma Sodium (136 - 145 mmol/L) 144 Plasma Potassium (3.5 - 5.1 mmol/L) 3.6 Plasma Chloride (98 - 107 mmol/L) 109 CO2 (Enzymatic) (21 - 32 mmol/L) 24 BUN (7 - 18 mg/dL) 6 Creatinine (0.6 - 1.3 mg/dL) 0.8 Est GFR ( Amer) (mL/min) >60 Est GFR (Non-Af Amer) (mL/min) >60 Glucose (70 - 110 mg/dL) 91 Plasma Calcium (8.5 - 10.1 mg/dL) 7.4 Total Bilirubin (0.0 - 1.0 mg/dL) 0.7 AST (15 - 37 U/L) 23 ALT (12 - 78 U/L) 27 Alkaline Phosphatase (46 - 116 U/L) 233 Total Protein (6.4 - 8.2 g/dL) 5.2 Albumin (3.3 - 5.0 g/dL) 1.3 Hematology WBC (4.5 - 11.5 K/uL) 6.6 RBC (4.50 - 5.90 M/uL) 2.95 Hgb (13.5 - 17.5 gm/dL) 8.3 Hct (41.0 - 53.0 %) 26.1 MCV (80 - 100 fL) 88 MCH (26 - 34 pg) 28 RDW (11.6 - 14.8 %) 17.9 Neut % (Auto) (50 - 75 %) 70 Lymph % (Auto) (25 - 40 %) 7 [place] % (Auto) (3 - 14 %) 7 Eos % (Auto) (0 - 4 %) 4 Baso % (Auto) (0 - 2 %) 0 Band Neutrophils % (0 - 8 %) 12 Metamyelocytes % (0 - 1 %) 0 Myelocytes (0 - 1 %) 0 Other Cell Type 0 Plt Count, EDTA (150 - 400 K/uL) 98 Polychromasia 1+ Hypochromic-Microcytic 2+ Anisocytosis (manual) 3+ PUBS MCHC (31 - 37 g/dL) 32 Assessment and Plan Problem List 1. Pneumonia of both lungs due to infectious organism Plan - Pt currently on vanco, azithro, sozyn and micafungin for pneumonia with multiple organisms - pt was seen to be neutropenic initially however patient is mounting an immune response and has appropriate distribution of wbcs with neutraphil predominance - will c/w all the aforementioned agents - currently on day 4 of therapy - vancomycin level appropriate, will repeat in 2 days - will obtain daily blood work - will follow up micro results 2. Sepsis Plan - secondary to bacterial and fungal agents - pt is on appropriate antibiotic therapy - will titrate down fluids - will continue to trend lab work 3. Hypotension Plan - pt has been hypertensive as of late - will resume home medications 4. AML (acute myeloblastic leukemia) Plan - currently in remission - will send hopsital course information and discharge paper work to Dr Olayinka caban upon discharge
[2016-12-27 22:27] VITALS: BP 121/45
[2016-12-28 01:16] VITALS: BP 125/62
[2016-12-28 07:25] VITALS: BP 111/54
[2016-12-28 10:53] VITALS: BP 118/59
[2016-12-28 14:44] VITALS: BP 113/62
--- NOTE | 2016-12-28 18:28 | Progress Note ---
Subjective General Patient is doing well without any complaints. Patient is resting comfortably Constitutional Weakness, Malaise. Denies: Fever, Chills, Sweats, Other. Eyes Denies: Pain, Vision Change, Conjunctival Inflammation, Eyelid Inflammation, Redness, Other. ENT Denies: Ear Pain, Ear Discharge, Nose Pain, Nasal Discharge, Nasal Congestion, Mouth Pain, Mouth Swelling, Throat Pain, Throat Swelling, Other. Respiratory Denies: Cough, Dry, SOB w/exertion, Wheezing, Hemoptysis, Pleuritic Pain, Sputum , Other. Cardiovascular Denies: Chest Pain, Palpitations, Orthopnea, PND, Edema, Light-headedness, Other. Gastrointestinal Denies: Nausea, Vomiting, Abdominal Pain, Diarrhea, Constipation, Melena, Hematochezia, Other. Genitourinary Denies: Dysuria, Frequency, Incontinence, Hematuria, Retention, Other. Musculoskeletal Denies: Neck Pain, Shoulder Pain, Arm Pain, Back Pain, Hand Pain, Leg Pain, Foot Pain, Other. Skin Denies: Rash, Lesions, Jaundice, Bruising, Other. Physical Exam Vital Signs / I&Os Vital Signs Date Time Temp Pulse Resp B/P Pulse O2 O2 Flow FiO2 Ox Delivery Rate 12/29 1538 97.9 83 16 112/61 91 Nasal 3.5 Cannula 12/29 1031 97.9 66 14 114/59 97 Nasal 3.5 Cannula 12/29 0830 Nasal 3.5 Cannula 12/29 0800 3.5 12/29 0736 98.2 80 16 109/61 97 Nasal 3.5 Cannula 12/29 0512 98.2 68 16 116/60 96 Nasal 3.5 Cannula 12/29 0244 71 100 12/28 2246 98.4 70 17 107/58 98 Nasal 3.5 Cannula 12/28 2033 Nasal 3.5 Cannula 12/28 1923 3.5 12/28 1839 97.9 85 18 108/57 98 Nasal 3.5 Cannula I&O 12/28 0800 12/28 1600 12/29 0000 Intake Total 5901 024 5950 Output Total 2550 1100 900 Balance -1112 -860 833 General Appearance Alert, Oriented X3, No acute distress HEENT Atraumatic, Moist mucous membranes Lungs Clear to auscultation, Normal air movement Cardiovascular - irregularly irregular rhythm Abdomen Soft, No tenderness, No guarding, No rebound Extremities No cyanosis, No edema, Normal pulses, Strength = upper ext's, Strength = lower ext's Skin No Rashes, No Breakdown, No Significant Lesions Neurological Normal tone, Sensation intact, Cranial nerves intact, No lateralizing signs, - weakness, requires assistance to transfer to chair Psych/Mental Status Mood normal LAB Results Laboratory Tests 12/29 0440 Chemistry Plasma Sodium (136 - 145 mmol/L) 144 Plasma Potassium (3.5 - 5.1 mmol/L) 3.6 Plasma Chloride (98 - 107 mmol/L) 109 CO2 (Enzymatic) (21 - 32 mmol/L) 24 BUN (7 - 18 mg/dL) 6 Creatinine (0.6 - 1.3 mg/dL) 0.8 Est GFR ( Amer) (mL/min) >60 Est GFR (Non-Af Amer) (mL/min) >60 Glucose (70 - 110 mg/dL) 91 Plasma Calcium (8.5 - 10.1 mg/dL) 7.4 Total Bilirubin (0.0 - 1.0 mg/dL) 0.7 AST (15 - 37 U/L) 23 ALT (12 - 78 U/L) 27 Alkaline Phosphatase (46 - 116 U/L) 233 Total Protein (6.4 - 8.2 g/dL) 5.2 Albumin (3.3 - 5.0 g/dL) 1.3 Hematology WBC (4.5 - 11.5 K/uL) 6.6 RBC (4.50 - 5.90 M/uL) 2.95 Hgb (13.5 - 17.5 gm/dL) 8.3 Hct (41.0 - 53.0 %) 26.1 MCV (80 - 100 fL) 88 MCH (26 - 34 pg) 28 RDW (11.6 - 14.8 %) 17.9 Neut % (Auto) (50 - 75 %) 70 Lymph % (Auto) (25 - 40 %) 7 [place] % (Auto) (3 - 14 %) 7 Eos % (Auto) (0 - 4 %) 4 Baso % (Auto) (0 - 2 %) 0 Band Neutrophils % (0 - 8 %) 12 Metamyelocytes % (0 - 1 %) 0 Myelocytes (0 - 1 %) 0 Other Cell Type 0 Plt Count, EDTA (150 - 400 K/uL) 98 Polychromasia 1+ Hypochromic-Microcytic 2+ Anisocytosis (manual) 3+ PUBS MCHC (31 - 37 g/dL) 32 Assessment and Plan Problem List 1. Pneumonia of both lungs due to infectious organism Plan - Pt currently on vanco, azithro, sozyn and micafungin for pneumonia with multiple organisms - pt was seen to be neutropenic initially however patient is mounting an immune response and has appropriate distribution of wbcs with neutraphil predominance - will c/w all the aforementioned agents - currently on day 6 of therapy - vancomycin level appropriate - will obtain daily blood work - no results of blood cultures besides initial findings 2. Sepsis Plan - secondary to bacterial and fungal agents - pt is on appropriate antibiotic therapy - resolving appropriately 3. Hypertension Plan - pt has evidence of rising blood pressure and frequent pvcs - will start the patient on beta j carlos - pt is unsure to as why he is taking amiodarone, will hold it for the time being 4. AML (acute myeloblastic leukemia) Plan - in remission - paperwork to be sent to Dr Bhagat office
[2016-12-28 18:39] VITALS: BP 108/57
[2016-12-28 22:46] VITALS: BP 107/58
[2016-12-29 05:12] VITALS: BP 116/60
[2016-12-29 07:36] VITALS: BP 109/61
[2016-12-29 10:31] VITALS: BP 114/59
[2016-12-29 15:38] VITALS: BP 112/61
--- NOTE | 2016-12-29 18:35 | Progress Note ---
Subjective General Patient is improving significantly. Patients only complaint is inability to sleep well at night. Constitutional Denies: Fever, Chills, Sweats, Weakness, Malaise, Other. Eyes Denies: Pain, Vision Change, Conjunctival Inflammation, Eyelid Inflammation, Redness, Other. Respiratory Cough. Denies: Dry, SOB w/exertion, Wheezing, Hemoptysis, Pleuritic Pain, Sputum, Other. Cardiovascular Denies: Chest Pain, Palpitations, Orthopnea, PND, Edema, Light-headedness, Other. Gastrointestinal Denies: Nausea, Vomiting, Abdominal Pain, Diarrhea, Constipation, Melena, Hematochezia, Other. Musculoskeletal Back Pain, Leg Pain. Denies: Neck Pain, Shoulder Pain, Arm Pain, Hand Pain, Foot Pain, Other. Skin Denies: Rash, Lesions, Jaundice, Bruising, Other. Neurological Denies: Weakness, Numbness, Incoordination, Change in speech, Confusion, Seizures, Other. Physical Exam Vital Signs / I&Os Vital Signs Date Time Temp Pulse Resp B/P Pulse O2 O2 Flow FiO2 Ox Delivery Rate 12/31 0807 Room Air 0.0 12/31 0714 98.6 82 16 121/59 95 Room Air 12/31 0430 98.6 81 20 105/67 93 Room Air 0.0 12/30 2300 97.5 72 16 123/62 95 Room Air 12/30 2018 Room Air 12/30 1801 69 16 128/67 95 I&O 12/30 0800 12/30 1600 12/31 0000 Intake Total 240 390 240 Output Total 2080 500 1925 [facility] -[phone] General Appearance Alert, Oriented X3, No acute distress HEENT Atraumatic, EOMI, Moist mucous membranes Lungs Clear to auscultation, Normal air movement Neck Supple, No JVD, No thyromegaly, No lymphadenopathy Cardiovascular Normal S1 and S2, No murmurs, gallops, rubs Abdomen Soft, No tenderness, No guarding, No rebound, No masses, No hepatosplenomegaly Extremities No edema, Normal pulses, No tenderness, Strength = upper ext's, Strength = lower ext's Skin No Breakdown Neurological Normal gait, Normal tone, Sensation intact, Cranial nerves intact, No lateralizing signs Psych/Mental Status Mood normal Assessment and Plan Problem List 1. Sepsis Plan - improving - currently patient is not considered septic - will switch to acute care status - blood pressure improved immensely - will c/w antibiotics for a full 7 day course - will c/w anti fungals for 14 days 2. Anemia Plan - stable - no evidence of further blood loss - will continue to obtain daily cbcs 3. AML (acute myeloblastic leukemia) Plan - in remission - will f/u with Dr Ahuja as an out patient 4. Hypertension Plan - pts blood pressure is beginning to rise - will resume home medication - unclear to as why patient is taking amiodarone - will hold for the time being
[2016-12-29 18:52] VITALS: BP 109/58
[2016-12-29 22:10] VITALS: BP 127/60
[2016-12-30 02:54] VITALS: BP 114/65
[2016-12-30 06:33] VITALS: BP 122/71
[2016-12-30 14:51] VITALS: BP 127/71
--- NOTE | 2016-12-30 17:43 | Progress Note ---
Subjective General Patient seen and examined this morning. Patient doing well and has no complaints except for heaviness sensation in his legs. Patient is otherwise stable. Constitutional Denies: Fever, Chills, Sweats, Weakness, Malaise, Other. Eyes Denies: Pain, Vision Change, Conjunctival Inflammation, Eyelid Inflammation, Redness, Other. ENT Denies: Ear Pain, Ear Discharge, Nose Pain, Nasal Discharge, Nasal Congestion, Mouth Pain, Mouth Swelling, Throat Pain, Throat Swelling, Other. Respiratory Cough, SOB w/exertion. Denies: Dry, Wheezing, Hemoptysis, Pleuritic Pain, Sputum, Other. Cardiovascular Denies: Chest Pain, Palpitations, Orthopnea, PND, Edema, Light-headedness, Other. Gastrointestinal Denies: Nausea, Vomiting, Abdominal Pain, Diarrhea, Constipation, Melena, Hematochezia, Other. Genitourinary Denies: Dysuria, Frequency, Incontinence, Hematuria, Retention, Other. Musculoskeletal Other (leg heaviness ). Denies: Neck Pain, Shoulder Pain, Arm Pain, Back Pain, Hand Pain, Leg Pain, Foot Pain. Skin Denies: Rash, Lesions, Jaundice, Bruising, Other. Neurological Denies: Weakness, Numbness, Incoordination, Change in speech, Confusion, Seizures, Other. Physical Exam Vital Signs / I&Os Vital Signs Date Time Temp Pulse Resp B/P Pulse O2 O2 Flow FiO2 Ox Delivery Rate 12/30 1451 98.1 85 16 127/71 96 Room Air 0.0 12/30 0830 Room Air 12/30 0633 98.1 75 16 122/71 92 Room Air 12/30 0254 97.9 85 16 114/65 92 Room Air 0.0 12/30 0136 Room Air 12/29 2210 98.4 82 16 127/60 98 Room Air 12/29 1951 Room Air 12/29 1937 3.5 12/29 1852 98.2 84 16 109/58 96 Room Air I&O 12/29 0800 12/29 1600 12/30 0000 Intake Total 1445 914 746 Output Total 500 2150 445 Balance 945 -1236 301 General Appearance Alert, Oriented X3, No acute distress HEENT Atraumatic, PERRLA, Moist mucous membranes Lungs Clear to auscultation, Normal air movement Abdomen Soft, No tenderness, No guarding Extremities No cyanosis, No clubbing, No edema, Normal pulses, No tenderness Skin No Breakdown, No Significant Lesions Psych/Mental Status Mood normal Assessment and Plan Problem List 1. Pneumonia of both lungs due to infectious organism Plan - will look to dc anti-microbials for bacteria given 7 day course - will c/w anti-fungals as po medication - no further evidence of sepsis noted - patient encouraged to increase po intake and work with home pt - will follow up with his pmd 2. Sepsis Plan - resolved 3. AML (acute myeloblastic leukemia) Plan - currently in remission - will monitor for resurgance - out pt follow up with pcp and oncologist 4. Hypertension Plan - c/w home medication.
[2016-12-30 18:01] VITALS: BP 128/67
[2016-12-30 23:00] VITALS: BP 123/62
[2016-12-31 04:30] VITALS: BP 105/67
[2016-12-31 07:14] VITALS: BP 121/59
[2016-12-31] MEDS ORDERED: ALDACTONE25 MG PO (14:15)
[2016-12-31] MEDS ORDERED: VICODIN EQUIVAL1 TAB PO (14:16)
[2016-12-31] MEDS ORDERED: FENTANYL12 MCG/HR TOP (14:17)
--- NOTE | 2016-12-31 14:19 | Provider's Discharge Care Plan ---
Problem, Goal, Plan Problem List 1. AML (acute myeloblastic leukemia) Instructions: - will send records to Dr Bhagat office 2. Pneumonia of both lungs due to infectious organism Instructions: Take meds as directed 3. Hypertension Instructions: Take meds as directed
--- NOTE | 2016-12-31 14:24 | Discharge Summary ---
Discharge Summary Report Admit Date 12/23/16 Discharge Date 12/31/16 Admission Diagnosis multi organism pneumonia Discharge Diagnosis multi organism pneumonia Brief History This is a 76-year-old male with a very complex medical history over the last couple of months, including new diagnosis of acute myelogenous leukemia in the middle of September, who has been treated with 3 treatments of chemotherapy and said to be in remission as of bone marrow biopsy done 12/12/2016. The patient initially presented to [facility] on 10/08/2016 and was admitted and monitored overnight, at which point he was transferred to the [facility] and was a patient there from 10/09/2016 until 11/05 2016. During this time, the patient was treated for his leukemia, as well as for resistant pneumonia with extremely broad-spectrum antibiotics. He was discharged home and then readmitted to [facility] on 11/12/2016 for reinduction chemotherapy and then discharged 11/18/2016, but readmitted for worsening pneumonia on 11/21/2016 and diagnosed with recurrent pneumonia coagulase-negative staphylococcal bacteremia. Blood cultures were also positive for hneok. He was discharged on 12/13/2016 and finished his antifungal and antibiotics on 12/17/2016. Over the last 2 days, so on 12/21/2016, the patient started having increasing weakness and shortness of breath, at which point he presented to [facility] after a fall from his weakness. He states that he has increased cough with sputum production. He does also complain that he has had chronic rhinorrhea over the last several years, and 24 hours before admission he also does have a headache. Upon admission, he was complaining of left-sided chest pain and tightness. Hospital Course Patient was admitted for multi organism pneumonia and sepsis. Patients hypotension began to improve with IV fluids and did not require vasopressive agents. Patient was treated with the antibiotics and began to improve significantly. Additionally patient had evidence of improvement of his anemia. Patient continued to improve day by day, and pain medications were adjusted to provide maximal relief during the time patient is sleeping. Patient responded well to the anti-microbials and was eventually transferred to acute care. Patients medications were restarted one by one, and his amiodarone was held, given the fact the patient did not exhibit any signs of atrial fibrillation. Patient was dowgraded to acute care and continued to progress well. Patient has maintained his blood pressure and is free on the symptoms that brought him in. Patient is ready for discharged. Patient will be discharged with home health aide, he will resume his home medications that are indicated. He will additionally finish his course of anti fungals. General Appearance Alert, Oriented X3, No acute distress HEENT PERRLA, Mucous membran moist/pink Lungs Normal air movement Cardiovascular Normal S1, Normal S2, No murmurs, Rubs Abdomen Soft, No tenderness, No hepatospenomegaly, No masses Skin No Breakdown, No Significant Lesions Neurological Normal speech, Normal tone, Sensation intact, Cranial nerves 3-12 NL Discharge Instructions/Meds - follow up with your oncologist Dr Ahuja - take medications as prescribed
== END 2016-12-31 15:30 | disposition home health service (06) | DRG 867 ==
LOC: ED SRH 04:16 → TRANS SRH 06:08 → CC SRH 09:15 → ACUTE2 SRH 09:15 → CC SRH 09:26 → ACUTE2 SRH 12-30 00:30
PROVIDERS: ADMIT Internal Medicine
PROC: 30233N1 Transfusion of Nonautologous Red Blood Cells into Peripheral Vein, Percutaneous Approach (ICD-10-PCS; principal; 2016-12-23)
PROC: 0T9B70Z Drainage of Bladder with Drainage Device, Via Natural or Artificial Opening (ICD-10-PCS; 2016-12-23)
DX: B48.8 Other specified mycoses (principal); A41.9 Sepsis, unspecified organism; J44.0 Chronic obstructive pulmonary disease with (acute) lower respiratory infection; J15.9 Unspecified bacterial pneumonia; C92.Z1 Other myeloid leukemia, in remission; Z94.81 Bone marrow transplant status; D64.81 Anemia due to antineoplastic chemotherapy; T45.1X5A Adverse effect of antineoplastic and immunosuppressive drugs, initial encounter; D70.9 Neutropenia, unspecified; I10 Essential (primary) hypertension
CPT/HCPCS: 20011; 83475; 83742; 83754; 83921; 84350; 84351; 85241; 85244; 90001; 90004; 90047; 90065; 90074; 90098; 90100; 90155; 90616; 91087; 91320; 91544; 91583; 91643; 92031; 92132; 92720; 92740; 93010; 93140; 94001; 94060; 95059

== ENCOUNTER 2017-01-16 12:46 | Inpatient (IN) | payer OTHER ==
[~2017-01-16] VITALS: Ht 172.7 cm; Wt 54.3 kg
[~2017-01-16 12:46] MED LIST changes: +ALDACTONE25 MG PO; +AMIODARONE HCL200 MG PO; +CRESTOR5 MG PO; +DIFLUCAN200 MG PO; +FENTANYL12 MCG/HR TOP; +MEGESTROL625 MG/5 M PO; +POTASSIUM CHLORIDE PO; +PROAIR HFA IN; +SPIRIVA18 MCG INH
--- NOTE | 2017-01-16 14:24 | DIAGNOSTIC IMAGING REPORT ---
PROCEDURE: XR CHEST 2 VIEW INDICATION: SOB TECHNIQUE: PA and lateral views. COMPARISON: Chest 12/25 and 12/23/2016 and 10/08/2016 FINDINGS: Right upper lobe infiltrate. This is best seen on the lateral view. Left lung is clear. IMPRESSION: 1. Right upper lobe infiltrate.
--- NOTE | 2017-01-16 16:35 | ED ORDER SUMMARY ---
..... Patient: SHORTY MIRANDA OrderSheet [facility] VisitID: [id number] [place] [address] 76y, M Registration Date/Time: 01/16/2017 ORDER SHEET Weight: 49.8 kg (stated) Allergies: None GENERAL ORDERS: Chest 2V Urgent (13:35 01/16/2017 Telly Mera) (Ack 13:36 Claudia) (14:02 EHassan R.N.) Adoption Social Worker (Continuous) (SOB) (13:35 01/16/2017 Telly Mera) (13:53 EHassaedmar R.N.) CBC w Diff Urgent (13:36 01/16/2017 Telly Mera) (Ack 13:36 Claudia) (13:53 EHassaedmar R.N.) CMP Urgent (13:36 01/16/2017 Telly Mera) (Ack 13:36 Claudia) (13:53 EHandrew R.N.) UA-Culture if indicated Urgent (13:36 01/16/2017 Telly Mera) (Ack 13:36 Claudia) PT with INR Urgent (13:36 01/16/2017 Telly Mera) (Ack 13:36 Claudia) (13:53 EHassan R.N.) D-Dimer Urgent (13:36 01/16/2017 Telly Mera) (Ack 13:36 Claudia) (13:53 Nubia R.N.) Troponin-I Urgent (13:36 01/16/2017 Telly Mera) (Ack 13:36 Claudia) (13:53 Nubia R.N.) Pulse oximeter (13:36 01/16/2017 Telly Mera) (13:53 TARIassaedmar R.N.) Oxygen (2 L/min) (NC) (13:36 01/16/2017 Telly Mera) (13:53 Nubia R.N.) - (hold 2 vials for blood cultures) (13:36 01/16/2017 Telly Mera) (13:53 TARIassaedmar R.N.) Lactate, Serum Urgent (13:37 01/16/2017 Telly Mera) (Ack 13:38 KHoerner) (13:53 Nubia R.N.) EKG - ER Stat (13:51 01/16/2017 PWeiler ER Tech1 per protocol) (13:52 PWeiler ER Tech1) Blood Culture (No) (N/A) Urgent (14:55 01/16/2017 Telly Mera) (Ack 14:57 KHoerner) (Cancelled: Duplicate Order14:59 Telly Mera) Blood Culture (No) (N/A) Urgent (14:59 01/16/2017 Telly Mera) (15:06 KHoerner) Lactate, Serum Urgent (16:39 01/16/2017 Telly Mera) (Ack 16:40 KHoerner) (16:40 KHoerner) MEDICATION ORDERS: IV FLUIDS: IV NS : initial bolus 500 mL (1000 mL/hr), then none - for X1 (NOW) (13:35 01/16/2017 Telly Mera) (14:32 Nubia R.N.) Fentanyl IV 50 mcg (HIGH ALERT MEDICATION, NOW) (13:36 01/16/2017 Telly Mera) (14:02 Nubia DominguezN.) Vancomycin IV 1 gm/200mL (NOW) (14:54 01/16/2017 Telly Mera) (15:06 Nubia R.N.) Levaquin IV 750 mg/150 mL (NOW) (14:54 01/16/2017 Telly Mera) (16:13 Nubia R.N.) Zosyn IV 4.5 gm/100mL (NOW) (14:54 01/16/2017 Telly Mera) IV NS : initial bolus 500 mL (1000 mL/hr), then none - for X1 (NOW) (14:54 01/16/2017 Telly Mera) (16:03 Nubia R.N.) IV NS : initial bolus 500 mL (1000 mL/hr), then none - for X1 (NOW) (16:39 01/16/2017 Telly Mera) (17:27 Nubia R.NJesus) ORDER SHEET NOTES: [Electronically signed by Sandra Plunkett R.N. (22:44 01/16/2017)] [Electronically signed by Rahat Austin Dr. (04:55 01/18/2017)] [Electronically locked/signed by Sandra Plunkett R.N. (22:44 01/16/2017)]
--- NOTE | 2017-01-16 16:35 | ED CLINICAL REPORT ---
Clinical Report - Physicians/Mid Levels Located Within [facility] [address] [place] [address] 01/16/2017 12:45 Patient: SHORTY MIRANDA Arrived- By private vehicle. Historian- patient. HISTORY OF PRESENT ILLNESS Chief Complaint: DYSPNEA. This started past few days and is still present. It was gradual in onset and has been constant but is not gone now. The dyspnea is described as moderate and is worsened by exertion and is improved by rest. No sweating episodes, wheezing, chest pain or foot swelling. (was in the clinic and told to go to the emergency department.). Similar symptoms previously: (a few times). Recent medical care: The patient was seen recently in a clinic. REVIEW OF SYSTEMS No black stools, bloody stools, headache or skin rash. All systems otherwise negative, except as recorded above. PAST HISTORY See nurses notes. Medications: Tiotropium [place] Monohydrate 18 MCG cap - once daily. Megestrol Acetate 625mg / 5ML Marichuy once daily. Albuterol Sulfate 2 puffs, every four hrs as needed. Potassium 20 MEQ - once daily. Fluconazole 200 Mg tab. - two times daily. Fentanyl 12 Mcg/Hr Patch, every 72 hrs.. Aceta 325mg 1 tab. daily. will bring list. OxyCODONE HCl Oral 10 mg, at bedtime. Allergies: None. SOCIAL HISTORY Former smoker. Occasional alcohol use. No drug use. No recent travel. Is a local resident. ADDITIONAL NOTES The nursing notes have been reviewed. PHYSICAL EXAM Vital Signs: 01/16/2017 13:19 BP: 96/69. HR: 114. RR: 24. O2 saturation: 100%. Temp: 97.9 F. Pain level now: 8/10. Oxygen saturation normal. Appearance: Alert. No acute distress. Eyes: Pupils equal, round and reactive to light. Eyes normal inspection. ENT: Ears normal. Nose normal. Pharynx normal. Uvula midline. Neck: Normal inspection. No jugular venous distention. Neck supple. CVS: Normal heart rate and rhythm. Heart sounds normal. Pulses normal. Respiratory: No respiratory distress. Breath sounds normal. Abdomen: Soft and nontender. No organomegaly. Skin: Skin warm and dry. Normal skin color. No rash. Normal skin turgor. Extremities: Extremities exhibit normal ROM. No lower extremity edema. LABS, X-RAYS, AND EKG EKG: No acute ischemia. Regular tachycardia (104). Sinus tachycardia. Normal P waves. Normal DORI. Normal QRS complex. Normal axis. Normal ST and T waves, QT and QTc. EKG unchanged when compared with prior EKG. The study has been interpreted contemporaneously by me. The study has been independently viewed by me. The EKG appears to be a good tracing. Chest X-ray: (PROCEDURE: XR CHEST 2 VIEW INDICATION: SOB TECHNIQUE: PA and lateral views. COMPARISON: Chest 12/25 and 12/23/2016 and 10/08/2016 FINDINGS: Right upper lobe infiltrate. This is best seen on the lateral view. Left lung is clear. IMPRESSION: 1. Right upper lobe infiltrate.). Laboratory Tests: CBC w Diff: (YRN: 01/16/2017 13:45) ( MsgRcvd 01/16/2017 15:38) Final results Test Result Flag Units (Reference) WHITE BLOOD COUNT 12.1 H K/uL (4.5-11.5) RED BLOOD COUNT 3.09 L M/uL (4.50-5.90) HEMOGLOBIN 8.7 L gm/dL (13.5-17.5) HEMATOCRIT 27.3 L % (41.0-53.0) MEAN CELL VOLUME 88 fL (80-100) MEAN CORPUSCULAR HGB 28 pg (26-34) MEAN CORPUSCULAR HGB CONC 32 g/dL (31-37) RED CELL DISTRIBUTION WIDTH 20.2 H % (11.6-14.8) PLATELET COUNT 340 K/uL (150-400) POLY % 83 H % (50-75) BAND % 3 % (0-8) LYMPH 5 L % (25-40) MONO 8 % (3-14) EOSINOPHIL % 1 % (0-4) BASOPHIL % 0 % (0-2) METAMYELOCYTE % 0 % (0-1) MYELOCYTE 0 % (0-1) OTHER CELL TYPE 0 ANISOCYTOSIS 2+ PT with INR: (YRN: 01/16/2017 14:30) ( MsgRcvd 01/16/2017 17:12) Final results Test Result Flag Units (Reference) INR 1.1 (0.8-1.2) Low Intensity Therapy: INR 1.5-2.0 PT range 18.5-23.1Mod.Intensity Therapy: INR 2.0-3.0 PT range 23.1-31.5High Intensity Therapy: INR 2.5-3.5 PT range 27.4-35.5High Intensity Therapy 2: INR 3.0-4.0 PT range 31.5-39.3 D-DIMER QUANTITATIVE 1.18 H ug/mLFEU (0.27-0.52) The primary value of this quantitative assay relates toits negative predictive value (i.e. exclusion) of pulmonaryembolism/deep vein thrombosis/DIC.Elevated levels of d-dimer may also occur with:, age, cancer, inflammation, liver disease,post-op, infection, hematoma, coronary disease, peripheralarteriopathy, bleeding disorders and thrombolytic treatment.Results should be correlated with other clinical andradiological data.Testing Methodology: Latex Immunoassay Lactate, Serum: (YRN: 01/16/2017 16:45) ( [facility] 01/16/2017 17:18) Final results Test Result Flag Units (Reference) LACTIC ACID 0.4 mmol/L (0.4-2.0) Lactate, Serum: (YRN: 01/16/2017 13:45) ( [facility] 01/16/2017 14:17) Final results Test Result Flag Units (Reference) LACTIC ACID 2.3 H mmol/L (0.4-2.0) CMP: (YRN: 01/16/2017 13:45) ( [facility] 01/16/2017 14:29) Final results Test Result Flag Units (Reference) GLUCOSE 96 mg/dL (70-110) BUN 48 H mg/dL (7-18) CREATININE 2.0 H mg/dL (0.6-1.3) Estimated GFR 34.52 mL/min Estimated GFR- 41.83 mL/min Note: Persistent reduction over 3 months in eGFR<60 mL/min/1.73 m2 defines CKD. Patients with eGFR values>=60 mL/min/1.73 m2 may also have CKD if evidence ofpersistent proteinuria. Additional information may be foundat www.kidney.org. SODIUM 136 mmol/L (136-145) POTASSIUM 6.0 H mmol/L (3.5-5.1) CHLORIDE 101 mmol/L (98-107) CARBON DIOXIDE 21 mmol/L (21-32) CALCIUM 9.7 mg/dL (8.5-10.1) TOTAL PROTEIN 8.2 g/dL (6.4-8.2) ALBUMIN 2.8 L g/dL (3.3-5.0) BILIRUBIN, TOTAL 0.5 mg/dL (0.0-1.0) ALKALINE PHOSPHATASE 207 H U/L (46-116) AST (SGOT) 50 H U/L (15-37) ALT (SGPT) 59 U/L (12-78) TROPONIN I <0.05 ng/mL (0.00-1.5) TROPONIN REFERENCE RANGE:<0.1 NEGATIVE0.1-1.5 INDETERMINANT>1.5 POSITIVE . PROGRESS AND PROCEDURES Course of Care: the patient is a pleasant 76-year-old male presented for evaluation of shortness of breath. Patient has a history of pneumonia as well as leukemia under remission. Patient was at the clinic's office and told to go to the emergency department for worsening shortness of breath. Patient reports that he was told he may need a transfusion. Patient in a mild amount of respiratory distress. Differential diagnosis at this time includes anemia, acute myocardial infarction, or pneumonia. Patient is agreeable to workup and plan. Chest x-ray, EKG, and laboratory studies have been ordered. Patient's workup was remarkable for the chest x-ray findings above. Because of the patient's condition, would like to limit the delay in the patient's treatment. Antibody accept been ordered. Blood cultures had been drawn initially on patient's presentation and held. They will be sent for culture studies. I discussion with patient in regards to the chest x-ray. Laboratory studies are pending. EKG is unremarkable. Patient's laboratory studies had returned. Hemoglobin of 8.7. Patient does not require transfusions at this time. White blood cell count noted at 12.1. Lactic acid is noted to be elevated at 2.3. Because of the patient's laboratory studies, patient meets sepsis criteria. Patient however with low reserve and would be concern for fluid overload and fluids were provided cautiously. No signs of fluid overload at this time. the rest of the patient's workup is unremarkable. No evidence of acute myocardial infarction. Patient is agreeable to treatment plan. Updated patient's doctor per patient's request. Contacted Dr. Larsen. No further recommendations made by his doctor. Was able to speak to the hospitalist. No further recommendations made. Antibiotics have been started. Patient does not appear to need to be going to the ICU at this time as his blood pressure has been stable and pac. Rest of her distress is significantly improved with fluid boluses while here in the emergency departmenwecs. Head discussion with patient in regards to his work. Emergency Department including diagnosis, and plan of care. All questions have been answered. Prior to patient's departure from the emergency department is noted to be resting in bed in no acute distress.. Patient continues to be nontoxic. Respiratory status is improved significantly. Critical care performed (60 minutes). Time is exclusive of separately billable procedures. Time includes: direct patient care, patient reassessment, coordination of patient care, interpretation of data (laboratory data), review of patient's medical records, medical consultation and documentation of patient care. CLINICAL IMPRESSION sepsis, acute moderate right upper lobe pneumonia anemia hyperkalemia. (Electronically signed by Rahat Austin Dr. 01/18/2017 4:55)
--- NOTE | 2017-01-16 16:35 | ED NURSING NOTES ---
Clinical Report - Nurses [facility] [address] [place] [address] 01/16/2017 12:45 [id number] Triage time 13:Jan 16 2017. Acuity: LEVEL 3. Chief Complaint: CHEST PAIN. Alert. No acute distress. --13:27 Dominique Naranjo R.N. 13:19 01/16/17. BP: 96/69. HR: 114. RR: 24. O2 saturation: 100%. Temp: 97.9 F. Pain level now: 05/23. --13:27 Dominique Naranjo R.N. Weight: 49.8 kg stated. Height/Length: 68 inches Per Patient. BMI: 16.7. --13:23 Dominique Naranjo R.N. Medications OxyCODONE HCl Oral 10 mg, at bedtime. --13:21 Dominique Naranjo R.N. will bring list. --13:21 Dominique Naranjo R.N. Aceta 325mg 1 tab. daily. --13:43 Cory, Rebecca, ER Tech1 Fentanyl 12 Mcg/Hr Patch, every 72 hrs.. --13:44 Nations, Rebecca, ER Tech1 Fluconazole 200 Mg tab. - two times daily. --13:44 Cory, Rebecca, ER Tech1 Potassium 20 MEQ - once daily. --13:45 Nations, Rebecca, ER Tech1 Albuterol Sulfate 2 puffs, every four hrs as needed. --13:46 Nations, Rebecca, ER Tech1 Megestrol Acetate 625mg / 5ML Marichuy once daily. --13:47 Nations, Rebecca, ER Tech1 Tiotropium [place] Monohydrate 18 MCG cap - once daily. --13:48 Nations, Rebecca, ER Tech1. Allergies None. --13:21 Dominique Naranjo R.N. History Arrived by private vehicle. Historian: patient. Accompanied by family. This is a recurrent problem. Started while at rest and worsened while participating in light activity. He has had difficulty breathing. No nausea, vomiting, fever or cough. PAST MEDICAL HX: Immunizations: up-to-date. SOCIAL HX: Former smoker. Occasional alcohol use. No drug use. No infectious disease exposure. SKIN INTEGRITY ASSESSMENT: Skin integrity risk assessment was performed. Risk factors identified include restricted mobility. SELF HARM ASSESSMENT: A self harm assessment was performed. The patient answered "no" to the question "Do you have thoughts of harming or killing yourself?". NUTRITIONAL RISK ASSESSMENT: The nutritional risk assessment revealed no deficiencies. FUNCTIONAL ASSESSMENT: Functional assessment: no impairments noted. LEARNING NEEDS ASSESSMENT: The learning needs assessment revealed no barriers. ABUSE ASSESSMENT: Abuse assessment: The patient was asked "Has anyone hurt you or threatened to hurt you?". FALL RISK ASSESSMENT: Fall risk assessment completed. Risk factors identified include patient medications, age greater than 65 years and impairment of mobility. --13:27 Dominique Naranjo R.N. PROBLEMS: Gastroesophageal Reflux Disease [Chronic]. --13:22 Dominique Naranjo R.N. Acute myeloid leukemia, disease. Cardiovascular Risk Factors. Pneumonia. Anemia. Leukocytosis. Hypercholesterolemia. Blood Transfusions. --13:22 Dominique Naranjo R.N. ADDITIONAL SURGERIES: Appendectomy. Ear surgery. Eyes. Tonsillectomy. --13:22 Dominique Naranjo R.N. Interventions ID band on patient. To room. --13:27 Dominique Naranjo R.N. PHYSICAL ASSESSMENT To room via wheelchair. GENERAL / NEURO / PSYCH: Alert. Oriented X 4. RESPIRATORY: Decreased breath sounds. CVS: Heart sounds within normal limits. GI / : Abdomen soft and nontender. EXTREMITIES: No lower extremity edema. SKIN: Skin is warm and dry. --13:33 Dominique Naranjo R.N. NURSING PROGRESS NOTES Oxygen administered. railways assistant, pulse oximeter and NIBP monitor placed on patient; celery tier- Lead II; monitor alarms on. Patient gowned. Head of bed elevated. Patient identifiers checked. Call light placed in reach. Side rails up x 1. Bed placed in lowest position. Brakes of bed on. --13:34 Dominique Naranjo R.N. EKG time: (1324). EKG was ordered, performed by a kimmy and shown to the ED physician. --13:37 Bran Porter ER Tech1 13:52 01/16/2017 Site #1 started via IV in the left antecubital space with an 20g angiocath; one attempt. Blood drawn: rainbow set. Labeled in the presence of the patient and sent to the lab. Saline lock flushed. --14:02 Sandra Plunkett R.N. 14:02 01/16/2017 Fentanyl IVP 50 mcg given over 1 minute(s) via site #1. Allergies verified, confirmed 5 rights and sedative warning given to the patient. IV patency established. IV site checked: no pain, redness, or swelling. IV flushed thoroughly pre- and post-medication administration. IVP given by RN. --14:02 Sandra Plunkett R.N. 14:32 01/16/2017 Started bag #1 500 mL IV Fluids IV NS (Saline); at 500 mL/hr over 1 hour(s) via site #1 via IV pump. Allergies verified and confirmed 5 rights. IV patency established. IV site checked: no pain, redness, or swelling. IV flushed thoroughly pre- and post-medication administration. --14:32 Sandra Plunkett R.N. 14:32 01/16/2017 Fentanyl IVP Response: no adverse reaction pain is improving. Symptoms have improved the patient feels better. --14:32 Sandra Plunkett R.N. 14:32 01/16/17. BP: 113/70. HR: 91. RR: 18. O2 saturation: 99% on room air. Temp: 97.8 F (oral). Pain level now: 12/21. --14:33 Sandra Plunkett R.N. Cardiac rhythm: normal sinus rhythm. Monitoring of patient in place. Reassurance given. Reassessment after fluids administered. He is calm and has had no adverse reaction. Overall patient status is the same- he states feels better. RESPIRATORY: Denies difficulty breathing. CVS: Denies chest pain. Patient identifiers checked. --14:33 Sandra Plunkett R.N. Cardiac rhythm: normal sinus rhythm. railways assistant, pulse oximeter and NIBP monitor placed on patient. Reassurance given. The patient is calm. Overall patient status is the same- he states feels the same. Two patient identifiers checked. Call light placed in reach. --15:06 Sandra Plunkett R.N. 14:57 01/16/17. BP: 105/71. HR: 96. RR: 26. O2 saturation: 100%. Temp: 98.1 F (oral). Pain level now: 12/21. --15:06 Sandra Plunkett R.N. 14:42 01/16/2017 Site #2 started via IV in the left forearm with an 20g angiocath; one attempt. Saline lock flushed with 10 mL saline. --15:07 Sandra Plunkett R.N. 15:06 01/16/2017 Started 1 gm of Vancomycin IVPB in bag #1 200 mL; at 100 mL/hr over 1.5 hour(s) via site #1 via IV pump. Allergies verified and confirmed 5 rights. IV patency established. IV site checked: no pain, redness, or swelling. IV flushed thoroughly pre- and post-medication administration. --15:06 Sandra Plunkett R.N. 16:01 01/16/2017 Vancomycin IVPB Discontinued: bag #1 completed. Total amount infused: 200 mL. --16:01 Sandra Plunkett R.N. 16:03 01/16/2017 Started bag #1 500 mL IV Fluids IV NS (Saline); at 500 mL/hr over 1 hour(s) via site #2 via IV pump. Allergies verified and confirmed 5 rights. IV patency established. IV site checked: no pain, redness, or swelling. IV flushed thoroughly pre- and post-medication administration. --16:03 Sandra Plunkett R.N. Cardiac rhythm: normal sinus rhythm. railways assistant, pulse oximeter and NIBP monitor placed on patient. Reassurance given. Overall patient status is the same- he states feels better. ( Pt states feeling better, IV antibiotics infusing as ordered, Fentanyl patch noted on right upper shoulder. Emotional support provided, comfort provided). Two patient identifiers checked. Call light placed in reach. Side rails up. Bed placed in lowest position. Brakes of bed on. --16:08 Sandra Plunkett R.N. 16:04 01/16/17. BP: 101/73. HR: 86. RR: 15. O2 saturation: 100%. Temp: 97.8 F (oral). Pain level now: 11/23. --16:08 Sandra Plunkett R.N. 16:13 01/16/2017 Started 750 mg of Levaquin (Levofloxacin) IVPB in bag #1 150 mL; at 100 mL/hr over 1.5 hour(s) via site #2; Allergies verified and confirmed 5 rights. IV patency established. IV site checked: no pain, redness, or swelling. IV flushed thoroughly pre- and post-medication administration. Completed per protocol. --16:13 Sandra Plunkett R.N. 16:13 01/16/2017 IV Fluids IV NS Discontinued: bag #1 completed. Total amount infused: 500 mL. IV patency established. IV site checked: no pain, redness, or swelling. IV flushed thoroughly. --16:13 Sandra Plunkett R.N. ( overview faxed to ICU). --17:03 Rebecca Ray ER Tech1 17:26 01/16/2017 Site #1 reassessed; infusing well. Converted to saline lock. --17:26 Sandra Plunkett R.N. 17:26 01/16/2017 Site #2 reassessed; infusing well and no signs of infection or infiltration. Line flushed with saline. Good blood return present. --17:26 Sandra Plunkett R.N. 17:00 01/16/17. BP: 97/48. HR: 92. RR: 20. O2 saturation: 100% on room air. Temp: 98.2 F (oral). Pain level now: 11/23. --17:26 Sandra Plunkett R.N. Cardiac rhythm: normal sinus rhythm. railways assistant, pulse oximeter and NIBP monitor placed on patient. Reassurance given. Reassessment after fluids administered. He is calm and resting quietly and has had no adverse reaction. Overall patient status is the same- he states feels better. RESPIRATORY: Denies difficulty breathing. CVS: Denies chest pain. Patient identifiers checked. Call light placed in reach. --17:26 Sandra Plunkett R.N. 17:00 01/16/2017 IV Fluids IV NS Discontinued: bag #2 completed. Total amount infused: 500 mL. IV patency established. IV site checked: no pain, redness, or swelling. IV flushed thoroughly. --22:42 Sandra Plunkett R.N. 17:27 01/16/2017 Started bag #1 500 mL IV Fluids IV NS (Saline); at 500 mL/hr over 1 hour(s) via site #2 via IV pump. Allergies verified and confirmed 5 rights. IV patency established. IV site checked: no pain, redness, or swelling. IV flushed thoroughly pre- and post-medication administration. --17:27 Sandra Plunkett R.N. 17:43 01/16/2017 Levaquin IVPB Discontinued: bag #1 completed upon admission. Total amount infused: 150 mL. IV patency established. IV site checked: no pain, redness, or swelling. IV flushed thoroughly. --22:43 Sandra Plunkett R.N. 17:43 01/16/2017 IV Fluids IV NS Discontinued: bag #2 completed upon admission. Total amount infused: 500 mL. IV patency established. IV site checked: no pain, redness, or swelling. IV flushed thoroughly. --22:43 Sandra Plunkett R.N. DISPOSITION / DISCHARGE late entry - 18:00 PM. Departure time: 1750 PM. Cardiac rhythm: normal sinus rhythm. Condition at departure: stable and critical. The goals identified in the patient's plan of care were met. Transported via stretcher by nurse with monitor. Report was given to a nurse via a phone call. Report included patient's care, treatment, medications, reviewed medication reconcilliation, and condition (including any recent changes or anticipated changes). All questions were answered. Report was acknowledged and care was transferred. (RN). ( Pt transferred safely to ICU, IV site intact, VSS). FALL RISK ASSESSMENT: Fall risk assessment completed. No fall risk identified. --22:42 Sandra Plunkett R.N. 17:30 01/16/17. BP: 97/48 (small adult cuff) taken on the left arm, via an automated monitor, while lying. HR: 92. RR: 18. O2 saturation: 100% on room air. Temp: 98.2 F (oral). Pain level now: 11/23. --22:42 Sandra Plunkett R.N. Locked/Released at 01/16/2017 22:44 by Sandra Plunkett R.N.
--- NOTE | 2017-01-16 16:35 | ED ORDER SUMMARY ---
..... Patient: SHORTY MIRANDA OrderSheet [facility] VisitID: [id number] [place] [address] 76y, M Registration Date/Time: 01/16/2017 ORDER SHEET Weight: 49.8 kg (stated) Allergies: None GENERAL ORDERS: Chest 2V Urgent (13:35 01/16/2017 Telly Mera) (Ack 13:36 Claudia) (14:02 EHassan R.N.) Head Of Visual Merchandising (Continuous) (SOB) (13:35 01/16/2017 Telly Mera) (13:53 EHassaedmar R.N.) CBC w Diff Urgent (13:36 01/16/2017 Telly Mera) (Ack 13:36 Claudia) (13:53 EHassaedmar R.N.) CMP Urgent (13:36 01/16/2017 Telly Mera) (Ack 13:36 Claudia) (13:53 EHandrew R.N.) UA-Culture if indicated Urgent (13:36 01/16/2017 Telly Mera) (Ack 13:36 Claudia) PT with INR Urgent (13:36 01/16/2017 Telly Mera) (Ack 13:36 Claudia) (13:53 EHassan R.N.) D-Dimer Urgent (13:36 01/16/2017 Telly Mera) (Ack 13:36 Claudia) (13:53 Nubia R.N.) Troponin-I Urgent (13:36 01/16/2017 Telly Mera) (Ack 13:36 Claudia) (13:53 Nubia R.N.) Pulse oximeter (13:36 01/16/2017 Telly Mera) (13:53 TARIassaedmar R.N.) Oxygen (2 L/min) (NC) (13:36 01/16/2017 Telly Mera) (13:53 Nubia R.N.) - (hold 2 vials for blood cultures) (13:36 01/16/2017 Telly Mera) (13:53 TARIassaedmar R.N.) Lactate, Serum Urgent (13:37 01/16/2017 Telly Mera) (Ack 13:38 KHoerner) (13:53 Nubia R.N.) EKG - ER Stat (13:51 01/16/2017 PWeiler ER Tech1 per protocol) (13:52 PWeiler ER Tech1) Blood Culture (No) (N/A) Urgent (14:55 01/16/2017 Telly Mera) (Ack 14:57 KHoerner) (Cancelled: Duplicate Order14:59 Telly Mera) Blood Culture (No) (N/A) Urgent (14:59 01/16/2017 Telly Mera) (15:06 KHoerner) Lactate, Serum Urgent (16:39 01/16/2017 Telly Mera) (Ack 16:40 KHoerner) (16:40 KHoerner) MEDICATION ORDERS: IV FLUIDS: IV NS : initial bolus 500 mL (1000 mL/hr), then none - for X1 (NOW) (13:35 01/16/2017 Telly Mera) (14:32 Nubia R.N.) Fentanyl IV 50 mcg (HIGH ALERT MEDICATION, NOW) (13:36 01/16/2017 Telly Mera) (14:02 Nubia DominguezN.) Vancomycin IV 1 gm/200mL (NOW) (14:54 01/16/2017 Telly Mera) (15:06 Nubia R.N.) Levaquin IV 750 mg/150 mL (NOW) (14:54 01/16/2017 Telly Mera) (16:13 Nubia R.N.) Zosyn IV 4.5 gm/100mL (NOW) (14:54 01/16/2017 Telly Mera) IV NS : initial bolus 500 mL (1000 mL/hr), then none - for X1 (NOW) (14:54 01/16/2017 Telly Mera) (16:03 Nubia R.N.) IV NS : initial bolus 500 mL (1000 mL/hr), then none - for X1 (NOW) (16:39 01/16/2017 Telly Mera) (17:27 Nubia R.NJesus) ORDER SHEET NOTES: [Electronically signed by Sandra Plunkett R.N. (22:44 01/16/2017)] [Electronically signed by Rahat Austin Dr. (04:55 01/18/2017)] [Electronically locked/signed by Sandra Plunkett R.N. (22:44 01/16/2017)]
[2017-01-16 17:55] VITALS: BP 115/67
--- NOTE | 2017-01-16 18:57 | History & Physical Report ---
Information Source Information Source: Self Reliability: Good History Chief Complaint generalized weakness History of Present Illness Patient is a 76 year old male that was recently discharged from [facility]. Patient returned home and was doing very well. Patient was making every effort to increase po intake and work with physical therapy and for the most part everything was doing well. However patient admits that he is unable to consume the amount of water that is required of him and admits to not drinking. Patient approximately 2 days ago felt profoundly weak and was unable to do much given his weakness. Patient attempted to go to his oncologist appointment however the patient required wheelchair assistance to get to the appointment and despite this the patient was able to make it. Patient however was seen by the oncologist and asked to go to the emergency room. Patient upon arrival to the emergency room was given antibiotics and a liter of fluid. Patient responded very well to the fluids and remarks that he feels much better than before. Patient will be admitted for possible pneumonia however work up in in complete. Patient History 1. AML (acute myeloblastic leukemia) 2. Glaucoma 3. Pneumonia 4. Internal hemorrhoids 5. History of Moh's micrographic surgery for skin cancer Social History SOCIAL HISTORY: The patient lives with his and his dog. He quit drinking alcohol in September 2016, at which time he was drinking 2-3 beers per week. He quit smoking on 09/24/2016 after smoking since 1956 at a rate of 1 pack per day. Family History FATHER (stroke). MOTHER (cancer). Medications and Allergies Medications Home Medications Potassium chloride 20 mEq p.o. daily. Spironolactone 25 mg p.o. daily. Albuterol inhaler. Megestrol 40 mg p.o. daily. Rosuvastatin 5 mg p.o. daily. Spiriva 18 mcg 1 puff inhaled daily. Current Medications Sig/Steph Start time Last Medication Dose Route Stop Time Status Admin Acetaminophen 650 MG Q6H PRN 01/16 1900 UNV PO Sodium Chloride 1,000 ML ASDIRECTED 01/16 1900 UNV IV Albuterol/Ipratropium 3 ML Q4H PRN 01/16 1645 AC IN 01/17 2000 Morphine Sulfate See Dose Q4H PRN 01/16 1645 AC Insts (1) IV 01/17 2000 Ondansetron HCl 4 MG Q8H PRN 01/16 1645 AC IV 01/17 2000 Dose Instructions: (1)Morphine Sulfate: 2 - 4 MG Allergies Coded Allergies: NKA (12/23/16) Review of Systems Constitutional Weakness, Malaise. Denies: Fever, Chills, Sweats, Other. Eyes Denies: Pain, Vision Change, Conjunctival Inflammation, Eyelid Inflammation, Redness, Other. ENT Denies: Ear Pain, Ear Discharge, Nose Pain, Nasal Discharge, Nasal Congestion, Mouth Pain, Mouth Swelling, Throat Pain, Throat Swelling, Other. Respiratory Denies: Cough, Dry, SOB w/exertion, Wheezing, Hemoptysis, Pleuritic Pain, Sputum , Other. Gastrointestinal Denies: Nausea, Vomiting, Abdominal Pain, Diarrhea, Constipation, Melena, Hematochezia, Other. Genitourinary Other (burning while urination ). Musculoskeletal Denies: Neck Pain, Shoulder Pain, Arm Pain, Back Pain, Hand Pain, Leg Pain, Foot Pain, Other. Skin Denies: Rash, Lesions, Jaundice, Bruising, Other. Neurological Denies: Weakness, Numbness, Incoordination, Change in speech, Confusion, Seizures, Other. Physical Exam Vital Signs / I&Os Vital Signs Date Time Temp Pulse Resp B/P Pulse O2 O2 Flow FiO2 Ox Delivery Rate 01/16 1755 97.5 92 18 115/67 100 General Appearance Alert, Oriented X3, No acute distress HEENT Atraumatic, Moist mucous membranes Lungs Clear to auscultation, Normal air movement Neck Supple, No masses, No thyromegaly, No lymphadenopathy, 2+ carotid pulse wo bruit Cardiovascular Normal S1 and S2, - irregularly irregular rhythm Abdomen Soft, No tenderness, No guarding Extremities No edema, Normal pulses, Strength = upper ext's, Strength = lower ext's Skin No Breakdown Neurological Normal speech, Sensation intact, Cranial nerves intact, Strength 5/ 5 x4 ext's, No lateralizing signs Psych/Mental Status Mood normal LAB Results Laboratory Tests 01/16 01/16 01/16 01/16 1345 1345 1430 1645 Chemistry Plasma Sodium (136 - 145 mmol/L) 136 Plasma Potassium (3.5 - 5.1 mmol/L) 6.0 Plasma Chloride (98 - 107 mmol/L) 101 CO2 (Enzymatic) (21 - 32 mmol/L) 21 BUN (7 - 18 mg/dL) 48 Creatinine (0.6 - 1.3 mg/dL) 2.0 Est GFR ( Amer) (mL/min) 41.83 Est GFR (Non-Af Amer) (mL/min) 34.52 Glucose (70 - 110 mg/dL) 96 Lactic Acid (0.4 - 2.0 mmol/L) 2.3 0.4 Plasma Calcium (8.5 - 10.1 mg/dL) 9.7 Total Bilirubin (0.0 - 1.0 mg/dL) 0.5 AST (15 - 37 U/L) 50 ALT (12 - 78 U/L) 59 Alkaline Phosphatase (46 - 116 U/L) 207 Troponin (0.00 - 1.5 ng/mL) <0.05 Total Protein (6.4 - 8.2 g/dL) 8.2 Albumin (3.3 - 5.0 g/dL) 2.8 Coagulation INR (0.8 - 1.2) 1.1 D-Dimer, Quantitative (0.27 - 0.52 ug/mLFEU) 1.18 Hematology WBC (4.5 - 11.5 K/uL) 12.1 RBC (4.50 - 5.90 M/uL) 3.09 Hgb (13.5 - 17.5 gm/dL) 8.7 Hct (41.0 - 53.0 %) 27.3 MCV (80 - 100 fL) 88 MCH (26 - 34 pg) 28 RDW (11.6 - 14.8 %) 20.2 Neut % (Auto) (50 - 75 %) 83 Lymph % (Auto) (25 - 40 %) 5 [place] % (Auto) (3 - 14 %) 8 Eos % (Auto) (0 - 4 %) 1 Baso % (Auto) (0 - 2 %) 0 Band Neutrophils % (0 - 8 %) 3 Metamyelocytes % (0 - 1 %) 0 Myelocytes (0 - 1 %) 0 Other Cell Type 0 Plt Count, EDTA (150 - 400 K/uL) 340 Anisocytosis (manual) 2+ PUBS MCHC (31 - 37 g/dL) 32 Microbiology Date/Time Procedure - Status Source Growth 01/16 183 MRSA Screen - COLB NOSE 01/16 1455 Blood Culture - CAN BLOOD Cancelled: Cancelled via OE: Auto Cancelled by IIM Interface 01/16 1455 Blood Culture - CAN BLOOD Cancelled: Cancelled via OE: Auto Cancelled by IIM Interface 01/16 1340 Blood Culture - RECD BLOOD Assessment and Plan Problem List 1. Pneumonia Plan - pt has questionable evidence of pneumonia - pt on previous admission had evidnece of pneumonia in a seperate area - will continue with treatment 2. Weakness Plan - pt has weakness that is presumably from decreased po intake - pt has no evidence of neurological compromise - will continue with aggressive nutrition supplementation - pt to evaluate 3. Lactic acid acidosis Plan - resolved 4. Chronic kidney disease Plan - Pt has evidence of chronic kidney disease present on previous admission as well - pts renal function has gotten slightly worse - will actively rehdydrate and monitor for improvment 5. AML (acute myeloblastic leukemia) Plan - no evidence of recurrence - will monitor - out patient follow up with dr castillo 6. Anemia Plan - pt has evidence of anemia - most likely secondary to chronic disease - pt recieved a transfusion - will monitor for improvement and trend cbc
[2017-01-17] VITALS (13 sets, daily range): BP systolic 84–103; BP diastolic 39–60
--- NOTE | 2017-01-17 18:48 | Progress Note ---
Subjective General Patient seen and examined. Patient has complaints of persistent leg pain and not much else. Patient still feels weak however his appetite is improving significantly. Patient otherwise has no other complaints. Constitutional Weakness. Denies: Fever, Chills, Sweats, Malaise, Other. Eyes Denies: Pain, Vision Change, Conjunctival Inflammation, Eyelid Inflammation, Redness, Other. ENT Denies: Ear Pain, Ear Discharge, Nose Pain, Nasal Discharge, Nasal Congestion, Mouth Pain, Mouth Swelling, Throat Pain, Throat Swelling, Other. Respiratory Denies: Cough, Dry, SOB w/exertion, Wheezing, Hemoptysis, Pleuritic Pain, Sputum , Other. Cardiovascular Denies: Chest Pain, Palpitations, Orthopnea, PND, Edema, Light-headedness, Other. Gastrointestinal Denies: Nausea, Vomiting, Abdominal Pain, Diarrhea, Constipation, Melena, Hematochezia, Other. Genitourinary Denies: Dysuria, Frequency, Incontinence, Hematuria, Retention, Other. Musculoskeletal Denies: Neck Pain, Shoulder Pain, Arm Pain, Back Pain, Hand Pain, Leg Pain, Foot Pain, Other. Skin Denies: Rash, Lesions, Jaundice, Bruising, Other. Neurological Denies: Weakness, Numbness, Incoordination, Change in speech, Confusion, Seizures, Other. Physical Exam Vital Signs / I&Os Vital Signs Date Time Temp Pulse Resp B/P Pulse O2 O2 Flow FiO2 Ox Delivery Rate 01/18 1031 97.9 94 20 104/58 100 Room Air 01/18 0621 98.4 88 18 107/60 97 Room Air 01/17 2238 98.2 83 19 103/59 99 Room Air 01/17 2030 Room Air I&O 01/17 0800 01/17 1600 01/18 0000 Intake Total 1600 800 540 Output Total 6537 151 4264 Balance 500 350 -760 General Appearance Alert, Oriented X3, No acute distress HEENT Atraumatic, PERRLA, EOMI, Moist mucous membranes Lungs Clear to auscultation, Normal air movement Neck Supple, No JVD, No masses Cardiovascular Regular rate and rhythm, No murmurs, gallops, rubs Abdomen Soft, No tenderness, No rebound, No masses Extremities No edema, Normal pulses, No tenderness Neurological Normal speech, Normal tone, Cranial nerves intact, No lateralizing signs Psych/Mental Status Mood normal LAB Results Laboratory Tests 01/18 0410 Chemistry Plasma Sodium (136 - 145 mmol/L) 142 Plasma Potassium (3.5 - 5.1 mmol/L) 4.2 Plasma Chloride (98 - 107 mmol/L) 109 CO2 (Enzymatic) (21 - 32 mmol/L) 18 BUN (7 - 18 mg/dL) 21 Creatinine (0.6 - 1.3 mg/dL) 1.4 Est GFR ( Amer) (mL/min) >60 Est GFR (Non-Af Amer) (mL/min) 52.09 Glucose (70 - 110 mg/dL) 83 Plasma Calcium (8.5 - 10.1 mg/dL) 8.5 Total Bilirubin (0.0 - 1.0 mg/dL) 0.5 AST (15 - 37 U/L) 29 ALT (12 - 78 U/L) 35 Alkaline Phosphatase (46 - 116 U/L) 129 Total Protein (6.4 - 8.2 g/dL) 6.0 Albumin (3.3 - 5.0 g/dL) 2.1 Hematology WBC (4.5 - 11.5 K/uL) 7.4 RBC (4.50 - 5.90 M/uL) 2.67 Hgb (13.5 - 17.5 gm/dL) 7.7 Hct (41.0 - 53.0 %) 24.1 MCV (80 - 100 fL) 90 MCH (26 - 34 pg) 29 RDW (11.6 - 14.8 %) 19.9 Neut % (Auto) (50 - 75 %) 71 Lymph % (Auto) (25 - 40 %) 12 [place] % (Auto) (3 - 14 %) 4 Eos % (Auto) (0 - 4 %) 4 Baso % (Auto) (0 - 2 %) 1 Band Neutrophils % (0 - 8 %) 5 Metamyelocytes % (0 - 1 %) 3 Myelocytes (0 - 1 %) 0 Other Cell Type 0 Plt Count, EDTA (150 - 400 K/uL) 200 Hypochromic-Microcytic 2+ Anisocytosis (manual) 3+ PUBS MCHC (31 - 37 g/dL) 32 Assessment and Plan Problem List 1. Weakness Plan - related to decrease po intake and infectious process - pt has improved immensely with increased po intake and antibiotics - will have PT assess pt tomorrow - will encourage increased po intake 2. BPH (benign prostatic hyperplasia) Plan - pt has been having difficulty urinating without the lawson catheter - iwill initiate flomax and dc catheter - 3. Chronic kidney disease Plan - improving with iv hydration - will continue to monitor 4. Pneumonia Plan - will continue to monitor - will continue with vanomycin
--- NOTE | 2017-01-18 04:55 | ED DISCHARGE INSTRUCTIONS ---
Patient: SHORTY MIRANDA General Instructions [facility] VisitID: [id number] [address] [place] [address] 76y, M Registration Date/Time: 01/16/2017 sepsis, acute moderate right upper lobe pneumonia anemia hyperkalemia. (Electronically signed by Rahat Austin Dr. 01/18/2017 4:55)
--- NOTE | 2017-01-18 04:55 | ED MED RECONCILIATION SUMMARY ---
Patient: SHORTY MIRANDA Medication Reconciliation Report [facility] VisitID: [id number] [address] [place] [address] 76y, M Registration Date/Time: 01/16/2017 Weight: 49.8 kg Height/Length: 68 in. BMI: 16.7 ALLERGIES: None The patient's Home Medications are listed below: THE FOLLOWING MEDICATIONS NEED TO BE RECONCILED: Aceta 325mg 1 tab. daily Albuterol Sulfate 2 puffs, every four hrs as needed Fentanyl 12 Mcg/Hr Patch, every 72 hrs. Fluconazole 200 Mg tab. - two times daily Megestrol Acetate 625mg / 5ML Marichuy once daily OxyCODONE HCl Oral 10 mg, at bedtime Potassium 20 MEQ - once daily Tiotropium [place] Monohydrate 18 MCG cap - once daily will bring list The source(s) of the original Home Medication information: Not obtained. The following Medications were given to the patient in the Emergency Department: Fentanyl [IVP] IVP 50 mcg, administered: 01/16/2017 2:02:00 PM IV NS IV Fluids bolus 0, then 500 mL/hr, administered: 01/16/2017 2:32:00 PM Vancomycin [IVPB] IVPB bolus 0, then 1 gm 100 mL/hr, administered: 01/16/2017 3:06:00 PM IV NS IV Fluids bolus 0, then 500 mL/hr, administered: 01/16/2017 4:03:00 PM Levaquin [IVPB] IVPB bolus 0, then 750 mg 100 mL/hr, administered: 01/16/2017 4:13:00 PM IV NS IV Fluids bolus 0, then 500 mL/hr, administered: 01/16/2017 5:27:00 PM The following Medications were prescribed to the patient: None.
--- NOTE | 2017-01-18 04:55 | ED DISCHARGE INSTRUCTIONS ---
Patient: SHORTY MIRANDA General Instructions [facility] VisitID: [id number] [address] [place] [address] 76y, M Registration Date/Time: 01/16/2017 sepsis, acute moderate right upper lobe pneumonia anemia hyperkalemia. (Electronically signed by Rahat Austin Dr. 01/18/2017 4:55)
--- NOTE | 2017-01-18 04:55 | ED MAR SUMMARY ---
..... Medication Administration Record [facility] [address] [place] [address] Patient: SHORTY MIRANDA Visit ID: [id number] 76y, M Weight: 49.8 kg Height/Length: 68 in BMI: 16.7 ALLERGIES: None Given 14:02 01/16/2017 Sandra Plunkett R.N. Medication Administered: FENTANYL [IVP], Dose: 50 mcg IVP over 1 minute(s), Site: #1 left AC. Medication Ordered: Fentanyl IV 50 mcg (HIGH ALERT MEDICATION, NOW). Start 14:32 01/16/2017 Sandra Plunkett R.N., Stop 16:13 01/16/2017 Sandra Plunkett R.N. Medication Administered: IV NS (SALINE), Dose: IV Fluids over 1 hour(s), Rate: 500 mL/hr, Dispensed: 500 mL bag, Site: #1 left AC. Medication Ordered: IV NS : initial bolus 500 mL (1000 mL/hr), then none - for X1 (NOW). Start 15:06 01/16/2017 Sandar Plunkett R.N., Stop 16:01 01/16/2017 Sandra Plunkett R.N. Medication Administered: VANCOMYCIN [IVPB], Dose: 1 gm IVPB over 1.5 hour(s), Rate: 100 mL/hr, Dispensed: 200 mL bag, Site: #1 left AC. Medication Ordered: Vancomycin IV 1 gm/200mL (NOW). Start 16:03 01/16/2017 Sandra Plunkett R.N., Stop 17:00 01/16/2017 Sandra Plunkett R.N. Medication Administered: IV NS (SALINE), Dose: IV Fluids over 1 hour(s), Rate: 500 mL/hr, Dispensed: 500 mL bag, Site: #2 left forearm. Medication Ordered: IV NS : initial bolus 500 mL (1000 mL/hr), then none - for X1 (NOW). Start 16:13 01/16/2017 Sandra Plunkett R.N., Stop 17:43 01/16/2017 Sandra Plunkett R.N. Medication Administered: LEVAQUIN [IVPB] (LEVOFLOXACIN), Dose: 750 mg IVPB over 1.5 hour(s), Rate: 100 mL/hr, Dispensed: 150 mL bag, Site: #2 left forearm. Medication Ordered: Levaquin IV 750 mg/150 mL (NOW). Start 17:27 01/16/2017 Sandra Plunkett R.N., Stop 17:43 01/16/2017 Sandra Plunkett RJesusN. Medication Administered: IV NS (SALINE), Dose: IV Fluids over 1 hour(s), Rate: 500 mL/hr, Dispensed: 500 mL bag, Site: #2. Medication Ordered: IV NS : initial bolus 500 mL (1000 mL/hr), then none - for X1 (NOW).
--- NOTE | 2017-01-18 04:55 | ED MAR SUMMARY ---
..... Medication Administration Record [facility] [address] [place] [address] Patient: SHORTY MIRANDA Visit ID: [id number] 76y, M Weight: 49.8 kg Height/Length: 68 in BMI: 16.7 ALLERGIES: None Given 14:02 01/16/2017 Sandra Plunkett R.N. Medication Administered: FENTANYL [IVP], Dose: 50 mcg IVP over 1 minute(s), Site: #1 left AC. Medication Ordered: Fentanyl IV 50 mcg (HIGH ALERT MEDICATION, NOW). Start 14:32 01/16/2017 Sandra Plunkett R.N., Stop 16:13 01/16/2017 Sandra Plunkett R.N. Medication Administered: IV NS (SALINE), Dose: IV Fluids over 1 hour(s), Rate: 500 mL/hr, Dispensed: 500 mL bag, Site: #1 left AC. Medication Ordered: IV NS : initial bolus 500 mL (1000 mL/hr), then none - for X1 (NOW). Start 15:06 01/16/2017 Sandra Plunkett R.N., Stop 16:01 01/16/2017 Sandra Plunkett R.N. Medication Administered: VANCOMYCIN [IVPB], Dose: 1 gm IVPB over 1.5 hour(s), Rate: 100 mL/hr, Dispensed: 200 mL bag, Site: #1 left AC. Medication Ordered: Vancomycin IV 1 gm/200mL (NOW). Start 16:03 01/16/2017 Sandra Plunkett R.N., Stop 17:00 01/16/2017 Sandra Plunkett R.N. Medication Administered: IV NS (SALINE), Dose: IV Fluids over 1 hour(s), Rate: 500 mL/hr, Dispensed: 500 mL bag, Site: #2 left forearm. Medication Ordered: IV NS : initial bolus 500 mL (1000 mL/hr), then none - for X1 (NOW). Start 16:13 01/16/2017 Sandra Plunkett R.N., Stop 17:43 01/16/2017 Sandra Plunkett R.N. Medication Administered: LEVAQUIN [IVPB] (LEVOFLOXACIN), Dose: 750 mg IVPB over 1.5 hour(s), Rate: 100 mL/hr, Dispensed: 150 mL bag, Site: #2 left forearm. Medication Ordered: Levaquin IV 750 mg/150 mL (NOW). Start 17:27 01/16/2017 Sandra Plunkett R.N., Stop 17:43 01/16/2017 Sandra Plunkett RJesusN. Medication Administered: IV NS (SALINE), Dose: IV Fluids over 1 hour(s), Rate: 500 mL/hr, Dispensed: 500 mL bag, Site: #2. Medication Ordered: IV NS : initial bolus 500 mL (1000 mL/hr), then none - for X1 (NOW).
--- NOTE | 2017-01-18 04:55 | ED MED RECONCILIATION SUMMARY ---
Patient: SHORTY MIRANDA Medication Reconciliation Report [facility] VisitID: [id number] [address] [place] [address] 76y, M Registration Date/Time: 01/16/2017 Weight: 49.8 kg Height/Length: 68 in. BMI: 16.7 ALLERGIES: None The patient's Home Medications are listed below: THE FOLLOWING MEDICATIONS NEED TO BE RECONCILED: Aceta 325mg 1 tab. daily Albuterol Sulfate 2 puffs, every four hrs as needed Fentanyl 12 Mcg/Hr Patch, every 72 hrs. Fluconazole 200 Mg tab. - two times daily Megestrol Acetate 625mg / 5ML Marichuy once daily OxyCODONE HCl Oral 10 mg, at bedtime Potassium 20 MEQ - once daily Tiotropium [place] Monohydrate 18 MCG cap - once daily will bring list The source(s) of the original Home Medication information: Not obtained. The following Medications were given to the patient in the Emergency Department: Fentanyl [IVP] IVP 50 mcg, administered: 01/16/2017 2:02:00 PM IV NS IV Fluids bolus 0, then 500 mL/hr, administered: 01/16/2017 2:32:00 PM Vancomycin [IVPB] IVPB bolus 0, then 1 gm 100 mL/hr, administered: 01/16/2017 3:06:00 PM IV NS IV Fluids bolus 0, then 500 mL/hr, administered: 01/16/2017 4:03:00 PM Levaquin [IVPB] IVPB bolus 0, then 750 mg 100 mL/hr, administered: 01/16/2017 4:13:00 PM IV NS IV Fluids bolus 0, then 500 mL/hr, administered: 01/16/2017 5:27:00 PM The following Medications were prescribed to the patient: None.
[2017-01-18 06:21] VITALS: BP 107/60
[2017-01-18 10:31] VITALS: BP 104/58
[2017-01-18] MEDS ORDERED: GABAPENTIN100 MG PO (15:00)
[2017-01-18] MEDS ORDERED: SPIRONOLACTONE25 MG PO (15:01)
[2017-01-18] MEDS ORDERED: TAMSULOSIN HCL0.4 MG PO (15:02)
[2017-01-18] MEDS ORDERED: CEFUROXIME AXE250 MG PO (15:05)
--- NOTE | 2017-01-18 15:08 | Provider's Discharge Care Plan ---
Problem, Goal, Plan Problem List 1. BPH (benign prostatic hyperplasia) Instructions: - take new tamsulosin as prescribed 2. Chronic kidney disease Instructions: - stay well hydrated 3. Right upper lobe pneumonia Instructions: - c/w antbiotics for the next 4 days 4. AML (acute myeloblastic leukemia) Instructions: - follow up with Dr Ahuja
--- NOTE | 2017-02-26 12:47 | Discharge Summary ---
Discharge Summary Report Admit Date 01/16/17 Discharge Date 01/18/17 Admission Diagnosis weakness and cough Discharge Diagnosis weakness and pneumonia Brief History please refer to admission H&P Hospital Course Patient was recently admitted to the hospital for a prolongued stay for pneumia. He has been having increased weakness and decreased PO intake which ultimately made the patient feel poor enough to return to the hospital. Upon admission patient was seen to have elevated lactic acid in the ER which was worrisome given his previous admission. Patient was admitted rehydrated on iv fluids, placed on antibiotics, and monitored. Patient was seen to improve quickly and his strength and overal demeanor improved. At this time prachi is ready for discharge. He will continue with out patient anitbioitics. General Appearance Alert, Oriented X3, No acute distress Lungs Normal air movement Cardiovascular No murmurs, Gallops, Rubs Abdomen Soft, No tenderness Skin No Breakdown Discharge Instructions/Meds - increase fluid intake - continue your medication and continue antibiotics
== END 2017-01-18 16:00 | disposition home or self-care (01) | DRG 194 ==
LOC: ED SRH 12:46 → TRANS SRH 16:41 → CC SRH 18:08
PROVIDERS: ADMIT Student in an Organized Health Care Education/Training Program
PROC: 30233N1 Transfusion of Nonautologous Red Blood Cells into Peripheral Vein, Percutaneous Approach (ICD-10-PCS; principal; 2017-01-15)
PROC: 0T9B70Z Drainage of Bladder with Drainage Device, Via Natural or Artificial Opening (ICD-10-PCS; 2017-01-16)
DX: J18.9 Pneumonia, unspecified organism (principal); C92.Z1 Other myeloid leukemia, in remission; N18.9 Chronic kidney disease, unspecified; D63.1 Anemia in chronic kidney disease; R74.8 Abnormal levels of other serum enzymes; R53.1 Weakness; N40.1 Benign prostatic hyperplasia with lower urinary tract symptoms; R33.8 Other retention of urine
CPT/HCPCS: 83475; 83921; 85241; 85244; 90001; 90004; 90065; 90074; 90100; 90155; 90616; 91004; 91544; 91556; 91643; 92031; 92132; 92720; 94060; 95059